=== PATIENT | male | born 1995 | race Hispanic/Latino ===

== ENCOUNTER 2018-08-29 22:41 | Emergency (ER) | payer SELFPAY ==
--- NOTE | 2018-08-30 00:51 | ER ---
Nurse's Notes [facility] Name: Kirk Olsen Age: 22 yrs Sex: Male : 1995 Arrival Date: 08/29/2018 Time: 22:42 Bed 2 Private MD: Diagnosis: Superficial injury of head;Concussion Presentation: 08/29 22:47 Presenting complaint: Friend states: +LOC, approx 30 secs after being hit in the back sr5 of the head with a softball thrown at him. Pt reports "I dont' remember anything". c/o pain to LEFT occiptal area behind LEFT year, +bruising and swelling noted. Pt is AA\\T\\Ox4, equal unlabored resp, skin warm/dry/nc. Transition of care: patient was not received from another setting of care. Mechanism of Injury: resulted from playing sports, baseball. Onset of symptoms was August 29, 2018 at 22:20. 22:47 Method Of Arrival: Ambulatory sr5 22:47 Acuity: ADAM 2 sr5 23:00 Risk Assessment: Do you want to hurt yourself or someone else? Patient reports no ea desire to harm self or others. Initial Sepsis Screen: Does the patient meet any 2 criteria? No. Patient's initial sepsis screen is negative. Does the patient have a suspected source of infection? No. Patient's initial sepsis screen is negative. Triage Assessment: 22:49 General: Appears uncomfortable, Behavior is calm, cooperative. Pain: Complains of pain sr5 in left base of the skull Pain currently is 7 out of 10 on a pain scale. Neuro: Level of Consciousness is awake, alert, obeys commands, Oriented to person, place, time, situation, Associate Team Physician are equal bilaterally Moves all extremities. Gait is steady, Speech is normal, Facial symmetry appears normal. Cardiovascular: No deficits noted. Respiratory: No deficits noted. Historical: - Allergies: 22:49 No Known Allergies; sr5 - Home Meds: 22:49 None [Active]; sr5 - PMHx: 22:49 None; sr5 - PSHx: 22:49 None; sr5 - Immunization history:: Adult Immunizations up to date. - Social history:: Smoking status: Patient/guardian denies using tobacco. - Ebola Screening: : No symptoms or risks identified at this time. - Family history:: not pertinent. - Hospitalizations: : No recent hospitalization is reported. Screenin:12 Abuse screen: Denies threats or abuse. Nutritional screening: No deficits noted. ea Tuberculosis screening: No symptoms or risk factors identified. Fall Risk None identified. Assessment: 23:00 General: Appears uncomfortable, Behavior is calm, cooperative, appropriate for age. ea Pain: Complains of pain in left base of the skull. Pain: Pain currently is 9 out of 10 on a pain scale. Quality of pain is described as aching, Pain began 30 min ago. Is continuous. Neuro: Level of Consciousness is awake, alert, obeys commands, Oriented to person, place, time, situation, Speech is normal, Facial symmetry appears normal. Cardiovascular: Patient's skin is warm and dry. Respiratory: Airway is patent Respiratory effort is even, unlabored, Respiratory pattern is regular, symmetrical, Breath sounds are clear bilaterally. GI: No signs and/or symptoms were reported involving the gastrointestinal system. : No signs and/or symptoms were reported regarding the genitourinary system. Derm: Skin is pink, warm \\T\\ dry. Musculoskeletal: Circulation, motion, and sensation intact. 23:33 Reassessment: Patient and/or family updated on plan of care and expected duration. Pain ea level reassessed. Patient is alert, oriented x 3, equal unlabored respirations, skin warm/dry/pink. Pt taken to CT. 23:49 Reassessment: Patient appears in no apparent distress at this time. Patient is alert, aa1 oriented x 3, equal unlabored respirations, skin warm/dry/pink. Pt back from CT. 08/30 00:10 Reassessment: Patient and/or family updated on plan of care and expected duration. Pain ea level reassessed. Patient is alert, oriented x 3, equal unlabored respirations, skin warm/dry/pink. 00:56 Reassessment: Patient appears in no apparent distress at this time. Patient is alert, aa1 oriented x 3, equal unlabored respirations, skin warm/dry/pink. Discussed d/c \\T\\ f/u instructions with pt; denies questions or concerns at this time Patient states feeling better. Vital Signs: 08/29 22:49 BP 133 / 79; Pulse 103; Resp 18; Temp 98.3; Pulse Ox 99% ; Weight 83.91 kg (R); Pain sr5 05/30; 23:15 BP 122 / 83; Pulse 86; Resp 18; Pulse Ox 98% on R/A; aa1 23:52 BP 121 / 83; Pulse 80; Resp 16; Pulse Ox 98% on R/A; aa1 08/30 00:11 BP 115 / 78; Pulse 81; Resp 17; Pulse Ox 100% ; ea 00:51 BP 121 / 76; Pulse 82; Resp 16; Pulse Ox 98% on R/A; aa1 [place] Coma Score: 08/29 22:47 Eye Response: spontaneous(4). Verbal Response: oriented(5). Motor Response: obeys sr5 commands(6). Total: 15. 23:39 Eye Response: spontaneous(4). Verbal Response: oriented(5). Motor Response: obeys rn commands(6). Total: 15. 08/30 00:49 Eye Response: spontaneous(4). Verbal Response: oriented(5). Motor Response: obeys rn commands(6). Total: 15. Trauma Score (Adult): 08/29 23:15 Eye Response: spontaneous(1); Verbal Response: oriented(1); Motor Response: obeys aa1 commands(2); Systolic BP: > 89 mm Hg(4); Respiratory Rate: 10 to 29 per min(4); [place] Score: 15; Trauma Score: 12 23:52 Eye Response: spontaneous(1); Verbal Response: oriented(1); Motor Response: obeys aa1 commands(2); Systolic BP: > 89 mm Hg(4); Respiratory Rate: 10 to 29 per min(4); [place] Score: 15; Trauma Score: 12 ED Course: 22:42 Patient arrived in ED. am2 22:49 Triage completed. sr5 22:49 Arm band placed on. sr5 22:52 Andre Guillen MD is Attending Physician. rn 23:00 Patient has correct armband on for positive identification. Bed in low position. Call ea light in reach. Side rails up X2. 23:12 Inserted saline lock: 20 gauge in right antecubital area, using aseptic technique. ea 23:[address] via wheelchair. kw1 23:33 Peggy Quezada, RN is Primary Nurse. ea 23:39 CT Head Brain wo Cont In Process Unspecified. EDMS 23:40 CT completed. Patient tolerated procedure well. Patient moved back from CT. kw1 08/30 00:56 No provider procedures requiring assistance completed. IV discontinued, intact, aa1 bleeding controlled, No redness/swelling at site. Pressure dressing applied. Administered Medications: 08/29 23:11 Drug: NS 0.9% 1000 ml Route: IV; Rate: 1000 ml; Site: right antecubital; ea 08/30 00:00 Follow up: IV Status: Completed infusion aa1 08/29 23:12 Drug: Zofran 4 mg Route: IVP; Site: right antecubital; ea 08/30 00:15 Follow up: Response: No adverse reaction; Nausea is decreased aa1 Outcome: 00:50 Discharge ordered by . rn 00:56 Discharged to home ambulatory, with friend. aa1 00:56 Condition: good 00:56 Discharge instructions given to patient, Instructed on discharge instructions, follow up and referral plans. Demonstrated understanding of instructions, follow-up care. 00:58 Patient left the ED. aa1 Signatures: Dispatcher [employer] Shira Reid, RN RN aa1 Andre Guillen MD MD rn Resecker, Sam, RN RN sr5 Bozena William am2 Peggy Quezada RN RN Elise Miller kw1
--- NOTE | 2018-08-30 00:51 | EDPHYS ---
Physician Documentation [facility] Name: Kirk Olsen Age: 22 yrs Sex: Male : 1995 Arrival Date: 08/29/2018 Time: 22:42 Bed 2 Private MD: ED Physician Andre Guillen HPI: 08/29 23:38 This 22 yrs old Male presents to ER via Ambulatory with complaints of Head rn Injury-Adult. 23:38 The patient or guardian reports injury. The complaints affect the. rn 23:39 Context of injury: The problem was sustained at a sports field or court. Onset: The rn symptoms/episode began/occurred just prior to arrival. Severity of symptoms: At their worst the symptoms were moderate, in the emergency department the symptoms have improved. The patient has not experienced similar symptoms in the past. Was playing softball, running to second, hit in back of head with softball, throw from home when stealing, + LOC, helpe din car and brought here for eval. NO medical problems, no vomiting, + nausea. . Historical: - Allergies: 22:49 No Known Allergies; sr5 - Home Meds: 22:49 None [Active]; sr5 - PMHx: 22:49 None; sr5 - PSHx: 22:49 None; sr5 - Immunization history:: Adult Immunizations up to date. - Social history:: Smoking status: Patient/guardian denies using tobacco. - Ebola Screening: : No symptoms or risks identified at this time. - Family history:: not pertinent. - Hospitalizations: : No recent hospitalization is reported. ROS: 23:39 Constitutional: Negative for fever, chills, and weight loss, Eyes: Negative for injury, rn pain, redness, and discharge, Neck: Negative for injury, pain, and swelling, Cardiovascular: Negative for chest pain, palpitations, and edema, Respiratory: Negative for shortness of breath, cough, wheezing, and pleuritic chest pain, Abdomen/GI: + nausea MS/Extremity: Negative for injury and deformity, Skin: Negative for injury, rash, and discoloration, Neuro: + headache, no weakness/paresthesias/focal neurological problems Exam: 23:39 Constitutional: This is a well developed, well nourished patient who is awake, alert, rn holding head Head/Face: mild tenderness and swelling of scalp left occiput, no depression or lacerations Eyes: Pupils equal round and reactive to light, extra-ocular motions intact. Lids and lashes normal. Conjunctiva and sclera are non-icteric and not injected. Cornea within normal limits. Periorbital areas with no swelling, redness, or edema. Neck: Trachea midline, no thyromegaly or masses palpated, and no cervical lymphadenopathy. Supple, full range of motion without nuchal rigidity, or vertebral point tenderness. No Meningismus. Cardiovascular: Regular rate and rhythm with a normal S1 and S2. No gallops, murmurs, or rubs. Normal PMI, no JVD. No pulse deficits. Respiratory: Lungs have equal breath sounds bilaterally, clear to auscultation and percussion. No rales, rhonchi or wheezes noted. No increased work of breathing, no retractions or nasal flaring. Abdomen/GI: Soft, non-tender, with normal bowel sounds. No distension or tympany. No guarding or rebound. No evidence of tenderness throughout. MS/ Extremity: Pulses equal, no cyanosis. Neurovascular intact. Full, normal range of motion. Equal circumference. Neuro: Awake and alert, GCS 15, oriented to person, place, time, and situation. Cranial nerves II-XII grossly intact. Motor strength 5/5 in all extremities. Sensory grossly intact. Cerebellar exam normal. Vital Signs: 22:49 BP 133 / 79; Pulse 103; Resp 18; Temp 98.3; Pulse Ox 99% ; Weight 83.91 kg (R); Pain sr5 7/10; 23:15 BP 122 / 83; Pulse 86; Resp 18; Pulse Ox 98% on R/A; aa1 23:52 BP 121 / 83; Pulse 80; Resp 16; Pulse Ox 98% on R/A; aa1 08/30 00:11 BP 115 / 78; Pulse 81; Resp 17; Pulse Ox 100% ; ea 00:51 BP 121 / 76; Pulse 82; Resp 16; Pulse Ox 98% on R/A; aa1 [place] Coma Score: 08/29 22:47 Eye Response: spontaneous(4). Verbal Response: oriented(5). Motor Response: obeys sr5 commands(6). Total: 15. 23:39 Eye Response: spontaneous(4). Verbal Response: oriented(5). Motor Response: obeys rn commands(6). Total: 15. 08/30 00:49 Eye Response: spontaneous(4). Verbal Response: oriented(5). Motor Response: obeys rn commands(6). Total: 15. Trauma Score (Adult): 08/29 23:15 Eye Response: spontaneous(1); Verbal Response: oriented(1); Motor Response: obeys aa1 commands(2); Systolic BP: > 89 mm Hg(4); Respiratory Rate: 10 to 29 per min(4); [place] Score: 15; Trauma Score: 12 23:52 Eye Response: spontaneous(1); Verbal Response: oriented(1); Motor Response: obeys aa1 commands(2); Systolic BP: > 89 mm Hg(4); Respiratory Rate: 10 to 29 per min(4); [place] Score: 15; Trauma Score: 12 MDM: 22:52 Patient medically screened. rn 08/30 00:49 Differential diagnosis: Contusion of Hematoma on Intracranial bleed- Concussion rn cerebral contusion. Data reviewed: vital signs, nurses notes, radiologic studies, CT scan, and as a result, I will discharge patient. Counseling: I had a detailed discussion with the patient and/or guardian regarding: the historical points, exam findings, and any diagnostic results supporting the discharge/admit diagnosis, radiology results, the need for outpatient follow up, to return to the emergency department if symptoms worsen or persist or if there are any questions or concerns that arise at home. Response to treatment: the patient's symptoms have markedly improved after treatment, the patient's condition has returned to base line, the patient is now symptom free, and as a result, I will discharge patient. Special discussion: Based on the patient's history, exam and DX evaluation, there is no indication for emergent intervention or inpatient TX. It is understood by the patient/guardian that if the SXs persist or worsen they need to return immediately for re-evaluation. I discussed with the patient/guardian in detail that at this point there is no indication for admission to the hospital. It is understood, however, that if the symptoms persist or worsen the patient needs to return immediately for re-evaluation. ED course: Pt now back to baseline, joking with friends in room, using cell phone, smiling, sitting upright. Neg ct head. . 08/29 23:00 Order name: CT Head Brain wo Cont rn 08/29 23:00 Order name: IV Start; Complete Time: 23:12 rn Administered Medications: 08/29 23:11 Drug: NS 0.9% 1000 ml Route: IV; Rate: 1000 ml; Site: right antecubital; ea 08/30 00:00 Follow up: IV Status: Completed infusion aa1 08/29 23:12 Drug: Zofran 4 mg Route: IVP; Site: right antecubital; ea 08/30 00:15 Follow up: Response: No adverse reaction; Nausea is decreased aa1 Disposition: 08/30/18 00:50 Discharged to Home. Impression: Superficial injury of head, Concussion. - Condition is Stable. - Discharge Instructions: Concussion, Adult, Head Injury, Adult, Post-Concussion Syndrome. - Medication Reconciliation Form, Thank You Letter, Antibiotic Education, Prescription Opioid Use form. - Follow up: Private Physician; When: As needed; Reason: Recheck today's complaints, Re-evaluation by your physician. - Problem is new. - Symptoms have improved. Signatures: Dispatcher [employer] EDMS Shira Venegas RN RN aa1 Andre Guillen MD MD rn Resecker, Sam RN RN sr5 Peggy Quezada RN RN ea Corrections: (The following items were deleted from the chart) 00:58 00:50 08/30/2018 00:50 Discharged to Home. Impression: Superficial injury of head; aa1 Concussion. Condition is Stable. Forms are Medication Reconciliation Form, Thank You Letter, Antibiotic Education, Prescription Opioid Use. Follow up: Private Physician; When: As needed; Reason: Recheck today's complaints, Re-evaluation by your physician. Problem is new. Symptoms have improved. rn
[2018-08-30 01:09] VITALS: TEMP 98.3
[2018-08-30 01:14] VITALS: BP 121/76; O2SAT 98
--- NOTE | 2018-08-30 08:28 | RAD REPORT ---
EXAM DESCRIPTION: CT - Head Brain Wo Cont - 08/30/2018 6:54 am CLINICAL HISTORY: Head injury. Hit in head with baseball. Loss of consciousness. COMPARISON: None. TECHNIQUE: Computed axial tomography of the head was obtained. IV contrast was not requested.Loss of the normal lordosis of the cervical spine may be secondary to muscle spasm or positioning All CT scans are performed using dose optimization technique as appropriate and may include automated exposure control or mA/KV adjustment according to patient size. FINDINGS: An intracranial bleed is not seen . The ventricles are normal in caliber. No extra-axial fluid collection is noted. Fluid within the sinuses/ mastoids is not seen. IMPRESSION: No acute intracranial abnormality is seen. If patient's symptoms persist MRI of the bra in would be recommended.
== END 2018-08-30 00:58 | disposition home or self-care (01) ==
LOC: ER 22:41
DX: S06.0X0A Concussion without loss of consciousness, initial encounter (principal); W21.07XA Struck by softball, initial encounter; Y93.89 Activity, other specified; Y92.328 Other athletic field as the place of occurrence of the external cause; Y99.0 Civilian activity done for income or pay
CPT/HCPCS: 70450; 96361; 96374; 99284

== ENCOUNTER 2019-01-30 06:58 | Emergency (ER) | payer SELFPAY ==
[2019-01-30] MEDS ORDERED: ONDANSETRON 4 MG (ODT) TAB ONE (07:25)
[2019-01-30] MEDS ORDERED: DIPHENOX/ATROP SULF 1 TAB PO ONE (07:25)
[2019-01-30] MEDS ORDERED: NA CHLORIDE 0.9% 1,000 ML ONE (07:25)
--- NOTE | 2019-01-30 08:20 | ER ---
Nurse's Notes [facility] Name: Kirk Olsen Age: 23 yrs Sex: Male : 1995 Arrival Date: 01/30/2019 Time: 07:02 Bed 20 Private MD: Diagnosis: Vomiting;Diarrhea, unspecified Presentation: 01/30 07:09 Presenting complaint: N/V/D, body aches, and LUQ pain x 2 days. Transition of care: hb patient was not received from another setting of care. Onset of symptoms was January 29, 2019. Risk Assessment: Do you want to hurt yourself or someone else? Patient reports no desire to harm self or others. Initial Sepsis Screen: Does the patient meet any 2 criteria? No. Patient's initial sepsis screen is negative. Does the patient have a suspected source of infection? No. Patient's initial sepsis screen is negative. Care prior to arrival: None. 07:09 Method Of Arrival: Ambulatory 07:09 Acuity: ADAM 3 hb Historical: - Allergies: 07:10 No Known Allergies; hb - Home Meds: 07:10 None [Active]; hb - PMHx: 07:10 None; hb - PSHx: 07:10 None; hb - Immunization history:: Adult Immunizations up to date. - Social history:: Smoking status: Patient/guardian denies using tobacco. - Ebola Screening: : No symptoms or risks identified at this time. - Family history:: not pertinent. - Hospitalizations: : No recent hospitalization is reported. Screenin:10 Abuse screen: Denies threats or abuse. Denies injuries from another. Nutritional hb screening: No deficits noted. Tuberculosis screening: No symptoms or risk factors identified. Fall Risk None identified. Assessment: 07:23 General: Appears in no apparent distress. Behavior is calm, cooperative, appropriate tw2 for age. Pain: Complains of pain in headache. Neuro: Level of Consciousness is awake, alert, obeys commands, Oriented to person, place, time, situation. Cardiovascular: Heart tones S1 S2 Patient's skin is warm and dry. Respiratory: Airway is patent Respiratory effort is even, unlabored, Respiratory pattern is regular, symmetrical, Breath sounds are clear bilaterally. GI: Abdomen is flat, non-distended, Bowel sounds present X 4 quads. Reports diarrhea, nausea, vomiting. : No signs and/or symptoms were reported regarding the genitourinary system. EENT: No signs and/or symptoms were reported regarding the EENT system. Derm: No signs and/or symptoms reported regarding the dermatologic system. Musculoskeletal: Range of motion: intact in all extremities. 09:04 Reassessment: Patient appears in no apparent distress at this time. No changes from tw2 previously documented assessment. Patient and/or family updated on plan of care and expected duration. Pain level reassessed. Patient is alert, oriented x 3, equal unlabored respirations, skin warm/dry/pink. Vital Signs: 07:09 BP 152 / 79; Pulse 95; Resp 16; Temp 98.8(TE); Pulse Ox 100% on R/A; Pain 6/10; hb ED Course: 07:02 Patient arrived in ED. am2 07:04 Andre Guillen MD is Attending Physician. rn 07:09 Triage completed. hb 07:10 Danii Li RN is Primary Nurse. tw2 07:10 Arm band placed on. hb 07:10 Patient has correct armband on for positive identification. Placed in gown. Bed in low hb position. Call light in reach. Side rails up X 1. 07:20 Inserted saline lock: 20 gauge in right antecubital area, using aseptic technique. tw2 07:23 Flu Sent. tw2 08:39 Awaiting: completion of IV fluids prior to discharge. tw2 09:00 No provider procedures requiring assistance completed. IV discontinued, intact, tw2 bleeding controlled, No redness/swelling at site. Pressure dressing applied. Administered Medications: 07:20 Drug: Zofran 4 mg Route: IVP; Site: right antecubital; tw2 09:00 Follow up: Response: No adverse reaction; Nausea is decreased tw2 07:20 Drug: LoMOTIL 2 tabs Route: PO; tw2 09:00 Follow up: Response: No adverse reaction tw2 07:22 Drug: NS 0.9% 1000 ml Route: IV; Rate: 1000 ml; Site: right antecubital; tw2 09:00 Follow up: Response: No adverse reaction; IV Status: Completed infusion; IV Intake: tw2 1000ml Intake: 09:00 IV: 1000ml; Total: 1000ml. tw2 Outcome: 08:19 Discharge ordered by . rn 09:00 Discharged to home ambulatory, with significant other. tw2 09:00 Condition: stable 09:00 Discharge instructions given to patient, significant other, Instructed on discharge instructions, follow up and referral plans. medication usage, Demonstrated understanding of instructions, follow-up care, medications, Prescriptions given X 1. 09:04 Patient left the ED. Signatures: Andre Guillen MD MD rn Baxter, Heather, RN RN Danii Li RN RN tw2 [facility]
--- NOTE | 2019-01-30 08:20 | EDPHYS ---
Physician Documentation [facility] Name: Kirk Olsen Age: 23 yrs Sex: Male : 1995 Arrival Date: 01/30/2019 Time: 07:02 Bed 20 Private MD: ED Physician Andre Guillen HPI: 01/30 07:08 This 23 yrs old Male presents to ER via Unassigned with complaints of muscle rn aches, vomiting/diarrhea. 07:09 The patient presents to the emergency department with nausea, vomiting, diarrhea. rn Onset: The symptoms/episode began/occurred yesterday. Possible causes: unknown. The symptoms are aggravated by nothing. The symptoms are alleviated by nothing. Severity of symptoms: At their worst the symptoms were mild in the emergency department the symptoms are unchanged. The patient has not experienced similar symptoms in the past. The patient has not recently seen a physician. Reports chills, muscle aches, cough, nausea/vomiting/diarrhea, began yesterday, reports mild LUQ/flank abd pain that is intermittent and cramping. . Historical: - Allergies: 07:10 No Known Allergies; hb - Home Meds: 07:10 None [Active]; hb - PMHx: 07:10 None; hb - PSHx: 07:10 None; hb - Immunization history:: Adult Immunizations up to date. - Social history:: Smoking status: Patient/guardian denies using tobacco. - Ebola Screening: : No symptoms or risks identified at this time. - Family history:: not pertinent. - Hospitalizations: : No recent hospitalization is reported. ROS: 07:09 Constitutional: + chills Eyes: Negative for injury, pain, redness, and discharge, ENT: rn Negative for injury, pain, and discharge, Neck: Negative for injury, pain, and swelling, Cardiovascular: Negative for chest pain, palpitations, and edema, Respiratory: Negative for shortness of breath, cough, wheezing, and pleuritic chest pain, Abdomen/GI: + nausea/vomiting/diarrhea MS/Extremity: Negative for injury and deformity, Skin: Negative for injury, rash, and discoloration, Neuro: + generalized weakness and headache Exam: 07:09 Constitutional: This is a well developed, well nourished patient who is awake, alert, rn and in no acute distress. Walked to room on own without difficulty. Head/Face: Normocephalic, atraumatic. Eyes: Pupils equal round and reactive to light, extra-ocular motions intact. Lids and lashes normal. Conjunctiva and sclera are non-icteric and not injected. Cornea within normal limits. Periorbital areas with no swelling, redness, or edema. ENT: Dry MM Neck: Trachea midline, no thyromegaly or masses palpated, and no cervical lymphadenopathy. Supple, full range of motion without nuchal rigidity, or vertebral point tenderness. No Meningismus. Abdomen/GI: soft, mild LUQ tenderness, no rebound, no peritoneal signs Back: No spinal tenderness. No costovertebral tenderness. Full range of motion. Skin: Warm, dry MS/ Extremity: Pulses equal, no cyanosis. Neurovascular intact. Full, normal range of motion. Equal circumference. Neuro: Awake and alert, GCS 15, oriented to person, place, time, and situation. Cranial nerves II-XII grossly intact. Motor strength 5/5 in all extremities. Sensory grossly intact. Cerebellar exam normal. Normal gait. Vital Signs: 07:09 BP 152 / 79; Pulse 95; Resp 16; Temp 98.8(TE); Pulse Ox 100% on R/A; Pain 6/10; hb MDM: 07:04 Patient medically screened. rn 08:19 Differential diagnosis: viral gastroenteritis, gastroenteritis. Data reviewed: vital rn signs, nurses notes, lab test result(s), and as a result, I will discharge patient. Counseling: I had a detailed discussion with the patient and/or guardian regarding: the historical points, exam findings, and any diagnostic results supporting the discharge/admit diagnosis, lab results, the need for outpatient follow up, to return to the emergency department if symptoms worsen or persist or if there are any questions or concerns that arise at home. Response to treatment: the patient's symptoms have markedly improved after treatment, and as a result, I will discharge patient. Special discussion: Based on the patient's Hx, exam, and Dx evaluation, there is no indication for emergent surgery or inpatient Tx. It is understood by the patient/guardian that if the Sx's persist or worsen they need to return immediately for re-evaluation. I discussed with the patient/guardian in detail that at this point there is no indication for admission to the hospital. It is understood, however, that if the symptoms persist or worsen the patient needs to return immediately for re-evaluation. 01/30 07:08 Order name: Flu; Complete Time: 07:39 rn 01/30 07:08 Order name: IV Start; Complete Time: 07:22 rn Administered Medications: 07:20 Drug: Zofran 4 mg Route: IVP; Site: right antecubital; tw2 09:00 Follow up: Response: No adverse reaction; Nausea is decreased 07:20 Drug: LoMOTIL 2 tabs Route: PO; 09:00 Follow up: Response: No adverse reaction :22 Drug: NS 0.9% 1000 ml Route: IV; Rate: 1000 ml; Site: right antecubital; tw 09:00 Follow up: Response: No adverse reaction; IV Status: Completed infusion; IV Intake: tw2 1000ml Disposition: 01/30/19 08:19 Discharged to Home. Impression: Vomiting, Diarrhea, unspecified. - Condition is Stable. - Discharge Instructions: Diarrhea, Adult, Nausea and Vomiting, Adult. - Prescriptions for Zofran ODT 4 mg Oral tablet,disintegrating - place 1 tablet by TRANSLINGUAL route every 8 hours As needed; 20 tablet. - Medication Reconciliation Form, Thank You Letter, Antibiotic Education, Prescription Opioid Use, Work release form form. - Follow up: Private Physician; When: As needed; Reason: Recheck today's complaints, Re-evaluation by your physician. - Problem is new. - Symptoms have improved. Signatures: Dispatcher [employer] EDMS Andre Guillen MD MD rn Baxter, Heather, RN RN hb Wise, Tara, RN RN tw2 Corrections: (The following items were deleted from the chart) 09:04 08:19 01/30/2019 08:19 Discharged to Home. Impression: Vomiting; Diarrhea, unspecified. hb Condition is Stable. Discharge Instructions: Diarrhea, Adult, Nausea and Vomiting, Adult. Prescriptions for Zofran ODT 4 mg Oral tablet,disintegrating - place 1 tablet by TRANSLINGUAL route every 8 hours As needed; 20 tablet. and Forms are Work release form, Medication Reconciliation Form, Thank You Letter, Antibiotic Education, Prescription Opioid Use. Follow up: Private Physician; When: As needed; Reason: Recheck today's complaints, Re-evaluation by your physician. Problem is new. Symptoms have improved. rn
[2019-01-30 09:19] VITALS: BP 152/79; TEMP 98.8; O2SAT 100
== END 2019-01-30 09:04 | disposition home or self-care (01) ==
LOC: ER 06:58
DX: R11.2 Nausea with vomiting, unspecified (principal); R19.7 Diarrhea, unspecified
CPT/HCPCS: 87804; 96361; 96374; 99284; J7030

== ENCOUNTER 2019-05-03 10:10 | Emergency (ER) | payer SELFPAY ==
--- OUTSIDE RECORDS SUMMARY | 2019-05-03 10:12 | XMS REPORT ---
:1995 [facility] Address [address] [place] [address] Dr. Pradhan [address] [place] [address] Care Team Providers Name Role Phone Unavailable Unavailable Unavailable Problems This patient has no known problems. Allergies, Adverse Reactions, Alerts This patient has no known allergies or adverse reactions. Medications This patient has no known medications.
[2019-05-03] MEDS ORDERED: ONDANSETRON 4 MG (ODT) TAB ONE (10:45)
--- NOTE | 2019-05-03 11:36 | ER ---
Nurse's Notes [facility] Name: Kirk Olsen Age: 23 yrs Sex: Male : 1995 Arrival Date: 05/03/2019 Time: 10:13 Bed 6 Private MD: Diagnosis: Streptococcal pharyngitis;Nausea and vomiting Presentation: 05/03 10:25 Presenting complaint: Patient states: sore throat x 1 week. Vomiting that began ss yesterday. Transition of care: patient was not received from another setting of care. Onset of symptoms was April 26, 2019. Risk Assessment: Do you want to hurt yourself or someone else? Patient reports no desire to harm self or others. Initial Sepsis Screen: Does the patient meet any 2 criteria? No. Patient's initial sepsis screen is negative. Does the patient have a suspected source of infection? No. Patient's initial sepsis screen is negative. Care prior to arrival: None. 10:25 Method Of Arrival: Ambulatory ss 10:25 Acuity: ADAM 4 ss Historical: - Allergies: 10:27 No Known Allergies; ss - Home Meds: 10:27 None [Active]; ss - PMHx: 10:27 None; ss - PSHx: 10:27 nasal repair; ss - Immunization history:: Adult Immunizations unknown. - Social history:: Smoking status: Patient uses tobacco products, denies chronic smoking, but will smoke occasionally. - Ebola Screening: : Patient denies exposure to infectious person Patient denies travel to an Ebola-affected area in the 21 days before illness onset. Screenin:32 Abuse screen: Denies threats or abuse. Denies injuries from another. Nutritional ss screening: No deficits noted. Tuberculosis screening: Never had TB. Fall Risk None identified. Assessment: 10:32 General: Appears in no apparent distress. comfortable, Behavior is calm, cooperative, ss Denies fever, feeling ill, fatigue, chills. Pain: Complains of pain in throat Pain currently is 6 out of 10 on a pain scale. Quality of pain is described as aching, tender, Pain began x 1 week Is continuous. Neuro: Level of Consciousness is awake, alert, obeys commands, Oriented to person, place, time, situation, Speech is normal, Facial symmetry appears normal, Pupils are PERRLA. Cardiovascular: Pulses are palpable in right radial artery and left radial artery. Respiratory: Airway is patent Respiratory effort is even, unlabored, Respiratory pattern is regular, symmetrical, Breath sounds are clear bilaterally. GI: Reports nausea, vomiting, that began last night. EENT: Nares are clear Oral mucosa is moist. Throat is reddened bilaterally. Derm: Skin is intact, is healthy with good turgor, Skin is dry, Skin is pink, warm \T\ dry. normal. Musculoskeletal: Circulation, motion, and sensation intact. Range of motion: intact in all extremities, Swelling absent. Vital Signs: 10:27 BP 126 / 88; Pulse 64; Resp 14; Temp 97.9; Pulse Ox 99% on R/A; Weight 86.18 kg; Height ss 5 ft. 5 in. (165.10 cm); Pain 6/10; 10:27 Body Mass Index 31.62 (86.18 kg, 165.10 cm) ED Course: 10:13 Patient arrived in ED. mr 10:20 Randolph Renee PA is PHCP. cp 10:20 Randolph Posada MD is Attending Physician. cp 10:26 Triage completed. ss 10:27 Arm band placed on right wrist. ss 10:28 Kaye Shannon RN is Primary Nurse. ss 10:32 Patient has correct armband on for positive identification. Bed in low position. Call ss light in reach. 10:34 Strep Sent. ss 12:23 No provider procedures requiring assistance completed. Patient did not have IV access ss during this emergency room visit. Administered Medications: 10:32 Drug: Zofran 4 mg Route: PO; ss 12:20 Follow up: Response: No adverse reaction; Nausea is decreased ss Outcome: 11:35 Discharge ordered by . cp 12:23 Discharged to home ambulatory. ss 12:23 Condition: good 12:23 Discharge instructions given to patient, family, Instructed on discharge instructions, follow up and referral plans. medication usage, Demonstrated understanding of instructions, follow-up care, medications, Prescriptions given X 2. 12:24 Patient left the ED. ss Signatures: Kalpesh Danna mr Kaye Shannon, RN RN Randolph Renee PA PA cp
--- NOTE | 2019-05-03 11:36 | EDPHYS ---
Physician Documentation [facility] Name: Kirk Olsen Age: 23 yrs Sex: Male : 1995 Arrival Date: 05/03/2019 Time: 10:13 Bed 6 Private MD: EDIE Physician Randolph Posada HPI: 05/03 10:30 This 23 yrs old Male presents to ER via Ambulatory with complaints of Sore cp Throat, Vomiting. 10:30 The patient presents with sore throat. Onset: The symptoms/episode began/occurred 1 cp week(s) ago. Associated signs and symptoms: Pertinent positives: cough, diarrhea, vomiting, Pertinent negatives dysphagia, fever. Historical: - Allergies: 10: No Known Allergies; ss - Home Meds: 10:27 None [Active]; ss - PMHx: 10: None; ss - PSHx: 10:27 nasal repair; ss - Immunization history:: Adult Immunizations unknown. - Social history:: Smoking status: Patient uses tobacco products, denies chronic smoking, but will smoke occasionally. - Ebola Screening: : Patient denies exposure to infectious person Patient denies travel to an Ebola-affected area in the 21 days before illness onset. ROS: 10:35 Constitutional: Negative for body aches, chills, fever, poor PO intake. cp 10:35 Eyes: Negative for injury, pain, redness, and discharge. cp Exam: 10:50 Constitutional: The patient appears in no acute distress, alert, awake, non-toxic, well cp developed, well nourished. 10:50 Head/Face: Normocephalic, atraumatic. cp 10:50 Eyes: Periorbital structures: appear normal, Conjunctiva: normal, no exudate, no injection, Lids and lashes: appear normal, bilaterally. 10:50 ENT: External ear(s): are unremarkable, Ear canal(s): are normal, clear, TM's: bulging, is not appreciated, bilaterally, dullness, bilaterally, erythema, is not appreciated, bilaterally, Nose: is normal, Mouth: Lips: moist, Oral mucosa: moist, Posterior pharynx: Airway: no evidence of obstruction, patent, Tonsils: with erythema, no exudate, Uvula: midline, non-edematous, no erythema, erythema, that is moderate, exudate, is not appreciated. 10:50 Neck: ROM/movement: is normal, is supple, without pain, no range of motions limitations, no meningismus, no nuchal rigidity. 10:50 Chest/axilla: Inspection: normal. 10:50 Cardiovascular: Rate: normal. 10:50 Respiratory: the patient does not display signs of respiratory distress, Respirations: normal, no use of accessory muscles, no retractions, no splinting, no tachypnea, labored breathing, is not present, Breath sounds: are clear throughout, no decreased breath sounds, no stridor, no wheezing. 10:50 Abdomen/GI: Exam negative for discomfort, distension, guarding, Inspection: abdomen appears normal. Vital Signs: 10:27 BP 126 / 88; Pulse 64; Resp 14; Temp 97.9; Pulse Ox 99% on R/A; Weight 86.18 kg; Height ss 5 ft. 5 in. (165.10 cm); Pain 6/10; 10:27 Body Mass Index 31.62 (86.18 kg, 165.10 cm) ss MDM: 10:20 Patient medically screened. cp 11:34 Data reviewed: vital signs, nurses notes, lab test result(s), and as a result, I will cp discharge patient. 11:34 Counseling: I had a detailed discussion with the patient and/or guardian regarding: the cp historical points, exam findings, and any diagnostic results supporting the discharge/admit diagnosis, lab results, to return to the emergency department if symptoms worsen or persist or if there are any questions or concerns that arise at home. 05/03 10:25 Order name: Strep; Complete Time: 11:12 cp 05/03 11:12 Interpretation: Reviewed. 05/03 11:12 Order name: PO challenge; Complete Time: 12:20 cp Administered Medications: 10:32 Drug: Zofran 4 mg Route: PO; ss 12:20 Follow up: Response: No adverse reaction; Nausea is decreased ss Disposition: 05/03/19 11:35 Discharged to Home. Impression: Streptococcal pharyngitis, Nausea and vomiting. - Condition is Stable. - Discharge Instructions: Nausea and Vomiting, Adult, Strep Throat, Form - Excuse from Work, School, or Physical Activity. - Prescriptions for Amoxicillin 875 mg Oral Tablet - take 1 tablet by ORAL route every 12 hours for 10 days; 20 tablet. Zofran 4 mg Oral Tablet - take 1 tablet by ORAL route every 12 hours As needed; 10 tablet. - Work release form, Medication Reconciliation Form, Thank You Letter, Antibiotic Education, Prescription Opioid Use form. - Follow up: Private Physician; When: 48 Hours; Reason: Worsening of condition. - Problem is new. - Symptoms have improved. Addendum: 05/07/2019 08:51 Co-signature as Attending Physician, Randolph Posada MD I agree with the assessment and c amaya plan of care. Signatures: Dispatcher [employer] EDSC Randolph Posada MD MD cha Smirch, Shelby RN RN ss Randolph Renee, PA PA cp Corrections: (The following items were deleted from the chart) 05/03 12:24 11:35 05/03/2019 11:35 Discharged to Home. Impression: Streptococcal pharyngitis; ss Nausea and vomiting. Condition is Stable. Forms are Medication Reconciliation Form, Thank You Letter, Antibiotic Education, Prescription Opioid Use. Follow up: Private Physician; When: 48 Hours; Reason: Worsening of condition. Problem is new. Symptoms have improved. cp
[2019-05-03 12:41] VITALS: BP 126/88; TEMP 97.9; O2SAT 99
== END 2019-05-03 12:24 | disposition home or self-care (01) ==
LOC: ER 10:10
DX: J02.0 Streptococcal pharyngitis (principal); R11.2 Nausea with vomiting, unspecified
CPT/HCPCS: 87081; 99283

== ENCOUNTER 2019-07-31 10:48 | Emergency (ER) | payer SELFPAY ==
--- OUTSIDE RECORDS SUMMARY | 2019-07-31 10:52 | XMS REPORT ---
:1995 [facility] Address [address] [place] [address] [address]. Pr[address] [place] [address] Care Team Providers Name Role Phone Unavailable Unavailable Unavailable Problems This patient has no known problems. Allergies, Adverse Reactions, Alerts This patient has no known allergies or adverse reactions. Medications This patient has no known medications.
[2019-07-31] MEDS ORDERED: ONDANSETRON 4 MG (ODT) TAB ONE (11:30)
[2019-07-31 13:11] VITALS: O2SAT 100
--- NOTE | 2019-07-31 13:13 | ER ---
Nurse's Notes [facility] Name: Kirk Olsen Age: 23 yrs Sex: Male : 1995 Arrival Date: 07/31/2019 Time: 10:51 Bed 16 Private MD: Diagnosis: Vomiting;Diarrhea, unspecified Presentation: 07/31 11:05 Presenting complaint: Patient states: vomited 3 times since yesterday, last vomited iw this morning at 0600 while getting ready for work, took some Pepto Bismol and went to sleep. Transition of care: patient was not received from another setting of care. Onset of symptoms was July 30, 2019. Risk Assessment: Do you want to hurt yourself or someone else? Patient reports no desire to harm self or others. Initial Sepsis Screen: Does the patient meet any 2 criteria? No. Patient's initial sepsis screen is negative. Does the patient have a suspected source of infection? No. Patient's initial sepsis screen is negative. Care prior to arrival: None. 11:05 Method Of Arrival: Ambulatory iw 11:05 Acuity: ADAM 3 iw Historical: - Allergies: 11:07 No Known Allergies; iw - Home Meds: 11:07 None [Active]; iw - PMHx: 11:07 None; iw - PSHx: 11:07 None; iw - Immunization history:: Adult Immunizations not up to date. - Social history:: Smoking status: Patient uses tobacco products, denies chronic smoking, but will smoke occasionally. - Ebola Screening: : Patient negative for fever greater than or equal to 101.5 degrees Fahrenheit, and additional compatible Ebola Virus Disease symptoms Patient denies exposure to infectious person Patient denies travel to an Ebola-affected area in the 21 days before illness onset No symptoms or risks identified at this time. Screenin:39 Abuse screen: Denies threats or abuse. Denies injuries from another. Nutritional jl7 screening: No deficits noted. Tuberculosis screening: No symptoms or risk factors identified. Fall Risk None identified. Assessment: 11:30 General: Appears in no apparent distress. comfortable, Behavior is calm, cooperative, jl7 appropriate for age. Pain: Denies pain. Neuro: Level of Consciousness is awake, alert, obeys commands, Oriented to person, place, time, situation. Cardiovascular: Patient's skin is warm and dry. Respiratory: Airway is patent Respiratory effort is even, unlabored, Respiratory pattern is regular, symmetrical. GI: Abdomen is round non-distended, Reports nausea, vomiting, Patient currently denies constipation, diarrhea. : No signs and/or symptoms were reported regarding the genitourinary system. Derm: Skin is pink, warm \T\ dry. 12:30 Reassessment: Patient appears in no apparent distress at this time. Patient and/or jl7 family updated on plan of care and expected duration. Pain level reassessed. Patient is alert, oriented x 3, equal unlabored respirations, skin warm/dry/pink. Patient states feeling better. Vital Signs: 11:07 BP 137 / 77; Pulse 74; Resp 16 S; Temp 98.2; Pulse Ox 100% on R/A; Weight 86.18 kg; iw Height 5 ft. 5 in. (165.10 cm); Pain 0/10; 11:39 BP 129 / 88; Pulse 71; Resp 16 S; Pulse Ox 98% on R/A; jl7 12:32 BP 117 / 82; Pulse 61; Resp 17; Temp 98.0(O); Pulse Ox 100% ; mh5 11:07 Body Mass Index 31.62 (86.18 kg, 165.10 cm) ED Course: 10:51 Patient arrived in ED. mr 10:55 Carlos Aguayo PA is PHCP. jmm 10:55 Andre Guillen MD is Attending Physician. [facility] 11:07 Triage completed. iw 11:08 Arm band placed on. iw 11:27 Hanane Ford, RN is Primary Nurse. jl7 11:38 Patient has correct armband on for positive identification. Bed in low position. Call [facility] light in reach. Pulse ox on. NIBP on. 11:38 Urine collected: clean catch specimen, clear. 5 11:42 Urine Dipstick--Ancillary (enter results) Sent. [facility] 13:03 No provider procedures requiring assistance completed. Patient did not have IV access [facility] during this emergency room visit. Administered Medications: 11:38 Drug: Zofran 4 mg Route: PO; jl7 Outcome: 12:43 Discharge ordered by . [facility] 13:03 Discharged to home ambulatory. [facility] 13:03 Condition: stable 13:03 Discharge instructions given to patient, Instructed on discharge instructions, follow up and referral plans. medication usage, Demonstrated understanding of instructions, follow-up care, medications, Prescriptions given X 1. 13:04 Patient left the ED. jl7 Signatures: Carlos Aguayo PA PA jmm Rivera, Mary mr Williams, Irene, RN Griselda Peña [facility] Hanane Ford RN RN jl7
--- NOTE | 2019-07-31 13:13 | EDPHYS ---
Physician Documentation [facility] Name: Kirk Olsen Age: 23 yrs Sex: Male : 1995 Arrival Date: 07/31/2019 Time: 10:51 Bed 16 Private MD: ED Physician Andre Guillen HPI: 07/31 11:10 This 23 yrs old Male presents to ER via Ambulatory with complaints of Vomiting.jmm 11:10 The patient presents to the emergency department with nausea, vomiting, diarrhea, jmm abdominal pain. Onset: The symptoms/episode began/occurred acutely, 1 day(s) ago. Possible causes: sick contacts, by a friend. The symptoms are aggravated by nothing. The symptoms are alleviated by nothing. Patient developed vomiting and diarrhea yesterday. Girlfriend had similar symptoms. . Historical: - Allergies: 11:07 No Known Allergies; iw - Home Meds: :07 None [Active]; iw - PMHx: 11:07 None; iw - PSHx: 11:07 None; iw - Immunization history:: Adult Immunizations not up to date. - Social history:: Smoking status: Patient uses tobacco products, denies chronic smoking, but will smoke occasionally. - Ebola Screening: : Patient negative for fever greater than or equal to 101.5 degrees Fahrenheit, and additional compatible Ebola Virus Disease symptoms Patient denies exposure to infectious person Patient denies travel to an Ebola-affected area in the 21 days before illness onset No symptoms or risks identified at this time. ROS: 11:10 Constitutional: Negative for fever, chills, and weight loss, Cardiovascular: Negative jmm for chest pain, palpitations, and edema, Respiratory: Negative for shortness of breath, cough, wheezing, and pleuritic chest pain. 11:10 Back: Negative for injury and pain, MS/Extremity: Negative for injury and deformity, Skin: Negative for injury, rash, and discoloration, Neuro: Negative for headache, weakness, numbness, tingling, and seizure. 11:10 Abdomen/GI: Positive for abdominal pain, nausea and vomiting, diarrhea. 11:10 All other systems are negative. Exam: 11:10 Constitutional: This is a well developed, well nourished patient who is awake, alert, jmm and in no acute distress. Head/Face: atraumatic. Eyes: EOMI, no conjunctival erythema appreciated ENT: Moist Mucus Membranes Neck: Trachea midline, Supple Chest/axilla: Normal chest wall appearance and motion. Cardiovascular: Regular rate and rhythm. No edema appreciated Respiratory: Normal respirations, no respiratory distress appreciated 11:10 Back: Normal ROM Skin: General appearance color normal MS/ Extremity: Moves all extremities, no obvious deformities appreciated, no edema noted to the lower extremities Neuro: Awake and alert, normal gait Psych: Behavior is normal, Mood is normal, Patient is cooperative and pleasant 11:10 Abdomen/GI: Inspection: abdomen appears normal, Bowel sounds: normal, Palpation: abdomen is soft and non-tender, in all quadrants. Vital Signs: 11:07 BP 137 / 77; Pulse 74; Resp 16 S; Temp 98.2; Pulse Ox 100% on R/A; Weight 86.18 kg; iw Height 5 ft. 5 in. (165.10 cm); Pain 0/10; 11:39 BP 129 / 88; Pulse 71; Resp 16 S; Pulse Ox 98% on R/A; jl7 12:32 BP 117 / 82; Pulse 61; Resp 17; Temp 98.0(O); Pulse Ox 100% ; mh5 11:07 Body Mass Index 31.62 (86.18 kg, 165.10 cm) iw MDM: 11:10 Patient medically screened. [facility] 11:10 Data reviewed: vital signs, nurses notes. Counseling: I had a detailed discussion with nilam the patient and/or guardian regarding: the historical points, exam findings, and any diagnostic results supporting the discharge/admit diagnosis, lab results, the need for outpatient follow up, to return to the emergency department if symptoms worsen or persist or if there are any questions or concerns that arise at home. ED course: Patient is able to tolerate PO in the ED. No abdominal pain on palpation. Symptoms appear most consistent with gastroenteritis. Patient given early appendicitis return precautions. Patient understood and agrees with the plan of care. . 07/31 11:40 Order name: Urine Dipstick--Ancillary (enter results) bd 07/31 11:10 Order name: Urine Dipstick-Ancillary (obtain specimen); Complete Time: 11:37 nilam 07/31 12:05 Order name: PO challenge nilam Administered Medications: 11:38 Drug: Zofran 4 mg Route: PO; jl7 Disposition: 14:45 Co-signature as Attending Physician, Andre Guillen MD. rn Disposition: 07/31/19 12:43 Discharged to Home. Impression: Vomiting, Diarrhea, unspecified. - Condition is Stable. - Discharge Instructions: Diarrhea, Adult, Nausea and Vomiting, Adult. - Prescriptions for Zofran ODT 4 mg Oral tablet,disintegrating - place 1 tablet by TRANSLINGUAL route every 4-6 hours; 20 tablet. - Medication Reconciliation Form, Thank You Letter, Antibiotic Education, Prescription Opioid Use, Work release form form. - Follow up: Private Physician; When: 2 - 3 days; Reason: Recheck today's complaints, Continuance of care, Re-evaluation by your physician. Signatures: Dispatcher [employer] EDMS Carlos Aguayo PA PA jmm Williams, Irene, Andre Crouch RN, MD MD rn Leal, Jahala, RN RN jl7 Corrections: (The following items were deleted from the chart) 13:04 12:43 07/31/2019 12:43 Discharged to Home. Impression: Vomiting; Diarrhea, unspecified. jl7 Condition is Stable. Forms are Medication Reconciliation Form, Thank You Letter, Antibiotic Education, Prescription Opioid Use. Follow up: Private Physician; When: 2 - 3 days; Reason: Recheck today's complaints, Continuance of care, Re-evaluation by your physician. nilam
[2019-07-31 13:17] VITALS: BP 117/82; TEMP 98
[2019-07-31 13:50] LABS: Urine Blood NEGATIVE (NEG); Urine Glucose NEGATIVE (NEG); Urine Protein NEGATIVE (NEG); Urine Specific Gravity >1.030 (1.005-1.030)
== END 2019-07-31 13:04 | disposition home or self-care (01) ==
LOC: ER 10:48
DX: R11.2 Nausea with vomiting, unspecified (principal); R19.7 Diarrhea, unspecified; Z72.0 Tobacco use
CPT/HCPCS: 81003; 99284

== ENCOUNTER 2019-08-27 11:36 | Emergency (ER) | payer SELFPAY ==
--- NOTE | 2019-08-27 13:33 | ER ---
Nurse's Notes [facility] Name: Kirk Olsen Age: 23 yrs Sex: Male : 1995 Arrival Date: 08/27/2019 Time: 11:39 Bed Treatment Private MD: Diagnosis: Acute tonsillitis;Acute upper respiratory infection, unspecified Presentation: 08/27 11:47 Presenting complaint: Patient states: sore throat, sinus congestion/pain, productive sv cough green phlegm, abd pain after vomiting started 2 days ago. Transition of care: patient was not received from another setting of care. Onset of symptoms was August 25, 2019. Risk Assessment: Do you want to hurt yourself or someone else? Patient reports no desire to harm self or others. Care prior to arrival: None. 11:47 Method Of Arrival: Ambulatory sv 11:47 Acuity: ADAM 3 sv 13:00 Initial Sepsis Screen: Does the patient meet any 2 criteria? No. Patient's initial iw sepsis screen is negative. Does the patient have a suspected source of infection? No. Patient's initial sepsis screen is negative. Triage Assessment: 11:47 General: Appears in no apparent distress. uncomfortable, Behavior is calm, cooperative, sv appropriate for age. Pain: Complains of pain in right cheek, left cheek and abdomen and throat. EENT: Throat has enlarged tonsils on right. Respiratory: Airway is patent Respiratory effort is even, unlabored. Historical: - Allergies: 11:48 No Known Allergies; sv - PMHx: 11:48 None; sv - PSHx: 11:48 None; sv - Immunization history:: Adult Immunizations unknown. - Social history:: Smoking status: Patient uses tobacco products, denies chronic smoking, but will smoke occasionally. - Ebola Screening: : No symptoms or risks identified at this time. Screenin:45 Abuse screen: Denies threats or abuse. Denies injuries from another. Nutritional iw screening: No deficits noted. Tuberculosis screening: No symptoms or risk factors identified. Fall Risk None identified. Assessment: 13:00 General: Appears in no apparent distress. comfortable, Behavior is calm, cooperative. iw Neuro: Level of Consciousness is awake, alert, obeys commands, Oriented to person, place, time, situation, Moves all extremities. Full function. Cardiovascular: Patient's skin is warm and dry. Respiratory: Airway is patent Respiratory effort is even, unlabored, Breath sounds are clear bilaterally. Derm: Skin is intact, is healthy with good turgor. Musculoskeletal: Range of motion: intact in all extremities. Vital Signs: 11:48 BP 127 / 97; Pulse 87; Resp 16; Temp 97.8; Pulse Ox 99% ; Weight 93.44 kg; Height 5 ft. sv 5 in. (165.10 cm); Pain 5/10; 11:48 Body Mass Index 34.28 (93.44 kg, 165.10 cm) sv ED Course: 11:39 Patient arrived in ED. mr 11:47 Triage completed. sv 11:48 Arm band placed on Patient placed in waiting room, Patient notified of wait time. sv 13:00 Patient has correct armband on for positive identification. iw 13:04 Patient moved to radiology via wheelchair. jb2 13:04 Chest Pa And Lat (2 Views) XRAY In Process Unspecified. EDMS 13:13 Nataliia Chaudhari RN is Primary Nurse. iw 13:16 Randolph Posada MD is Attending Physician. [facility] 13:46 No provider procedures requiring assistance completed. Patient did not have IV access iw during this emergency room visit. Administered Medications: No medications were administered Outcome: 13:32 Discharge ordered by . ruth 13:46 Discharged to home ambulatory. iw 13:46 Condition: good 13:46 Discharge instructions given to patient, Instructed on discharge instructions, follow up and referral plans. medication usage, Demonstrated understanding of instructions, follow-up care, medications, Prescriptions given X 3. 13:47 Patient left the ED. iw Signatures: Dispatcher [employer] Do Mckeon RN RN sv Anderson, Corey, MD MD cha Rivera, Mary Aleksander Scott jb2 Nataliia Chaudhari RN RN iw Corrections: (The following items were deleted from the chart) 15:48 13:46 Discharge instructions given to patient, Instructed on discharge instructions, iw follow up and referral plans. medication usage, Demonstrated understanding of instructions, follow-up care, medications, Prescriptions given X iw
--- NOTE | 2019-08-27 13:34 | EDPHYS ---
Physician Documentation [facility] Name: Kirk Olsen Age: 23 yrs Sex: Male : 1995 Arrival Date: 08/27/2019 Time: 11:39 Bed Treatment Private MD: ED Physician Randolph Posada HPI: 08/27 13:29 This 23 yrs old Male presents to ER via Ambulatory with complaints of Sore ruth Throat, Headache, Abdominal Pain. 13:29 The patient presents with sore throat. The patient describes throat pain as burning, ruth constant. Onset: The symptoms/episode began/occurred yesterday. Severity of symptoms: At their worst the symptoms were mild, in the emergency department the symptoms are unchanged. Modifying factors: The symptoms are alleviated by nothing, the symptoms are aggravated by fluids, swallowing, Patient's oral intake status: good. Associated signs and symptoms: The patient has no apparent associated signs or symptoms. Historical: - Allergies: 11:48 No Known Allergies; sv - PMHx: 11:48 None; sv - PSHx: 11:48 None; sv - Immunization history:: Adult Immunizations unknown. - Social history:: Smoking status: Patient uses tobacco products, denies chronic smoking, but will smoke occasionally. - Ebola Screening: : No symptoms or risks identified at this time. ROS: 13:30 Constitutional: Negative for fever, chills, and weight loss, Eyes: Negative for injury, ruth pain, redness, and discharge, Neck: Negative for injury, pain, and swelling, Cardiovascular: Negative for chest pain, palpitations, and edema, Respiratory: Negative for shortness of breath, cough, wheezing, and pleuritic chest pain, Abdomen/GI: Negative for abdominal pain, nausea, vomiting, diarrhea, and constipation, Back: Negative for injury and pain, : Negative for injury, bleeding, discharge, and swelling, MS/Extremity: Negative for injury and deformity, Skin: Negative for injury, rash, and discoloration, Neuro: Negative for headache, weakness, numbness, tingling, and seizure, Psych: Negative for depression, anxiety, suicide ideation, homicidal ideation, and hallucinations, Allergy/Immunology: Negative for hives, rash, and allergies, Endocrine: Negative for neck swelling, polydipsia, polyuria, polyphagia, and marked weight changes, Hematologic/Lymphatic: Negative for swollen nodes, abnormal bleeding, and unusual bruising. 13:30 ENT: Positive for sore throat. 13:30 Neck: Positive for Exam: 13:30 Constitutional: This is a well developed, well nourished patient who is awake, alert, ruth and in no acute distress. Head/Face: Normocephalic, atraumatic. Eyes: Pupils equal round and reactive to light, extra-ocular motions intact. Lids and lashes normal. Conjunctiva and sclera are non-icteric and not injected. Cornea within normal limits. Periorbital areas with no swelling, redness, or edema. Neck: Trachea midline, no thyromegaly or masses palpated, and no cervical lymphadenopathy. Supple, full range of motion without nuchal rigidity, or vertebral point tenderness. No Meningismus. Chest/axilla: Normal chest wall appearance and motion. Nontender with no deformity. No lesions are appreciated. Cardiovascular: Regular rate and rhythm with a normal S1 and S2. No gallops, murmurs, or rubs. Normal PMI, no JVD. No pulse deficits. Respiratory: Lungs have equal breath sounds bilaterally, clear to auscultation and percussion. No rales, rhonchi or wheezes noted. No increased work of breathing, no retractions or nasal flaring. Abdomen/GI: Soft, non-tender, with normal bowel sounds. No distension or tympany. No guarding or rebound. No evidence of tenderness throughout. Back: No spinal tenderness. No costovertebral tenderness. Full range of motion. Male : Normal genitalia with no discharge or lesions. Skin: Warm, dry with normal turgor. Normal color with no rashes, no lesions, and no evidence of cellulitis. Neuro: Awake and alert, GCS 15, oriented to person, place, time, and situation. Cranial nerves II-XII grossly intact. Motor strength 5/5 in all extremities. Sensory grossly intact. Cerebellar exam normal. Normal gait. Psych: Awake, alert, with orientation to person, place and time. Behavior, mood, and affect are within normal limits. 13:30 ENT: Posterior pharynx: Tonsils: bilaterally enlarged, with erythema, no exudate, no ulcerations, Uvula: midline, non-edematous, erythema, swelling, that is mild, erythema, that is mild, exudate, is not appreciated, peritonsillar mass, is not appreciated, pooling of secretions, is not appreciated. Vital Signs: 11:48 BP 127 / 97; Pulse 87; Resp 16; Temp 97.8; Pulse Ox 99% ; Weight 93.44 kg; Height 5 ft. sv 5 in. (165.10 cm); Pain 5/10; 11:48 Body Mass Index 34.28 (93.44 kg, 165.10 cm) sv MDM: 13:16 [facility] 13:31 Data reviewed: vital signs, nurses notes. ruth 08/27 11:48 Order name: Strep 08/27 11:48 Order name: Flu sv 08/27 11:48 Order name: Chest Pa And Lat (2 Views) XRAY sv 08/27 12:17 Order name: Throat Culture EDMS Administered Medications: No medications were administered Disposition: 08/27/19 13:32 Discharged to Home. Impression: Acute tonsillitis, Acute upper respiratory infection, unspecified. - Condition is Stable. - Discharge Instructions: Tonsillitis, Upper Respiratory Infection, Adult, Tonsillitis, [id number], Upper Respiratory Infection, Adult, [id number], Cough, Adult, [id number], Cough, Adult. - Prescriptions for Amoxicillin 500 mg Oral Capsule - take 1 capsule by ORAL route every 8 hours for 10 days; 30 tablet. Flora- D 12 Hour 60-120 mg Oral Tablet Sustained Release 12 hr - take 1 tablet by ORAL route every 12 hours As needed; 20 tablet. Medrol (Juan M) 4 mg Oral Tablets, Dose Pack - take 1 tablet by ORAL route as directed - follow package instructions; 1 packet. - Medication Reconciliation Form, Thank You Letter, Antibiotic Education, Prescription Opioid Use, Work release form form. - Follow up: Private Physician; When: 2 - 3 days; Reason: Recheck today's complaints, Continuance of care, Re-evaluation by your physician. - Problem is new. - Symptoms have improved. Signatures: Dispatcher [employer] Do Mckeon RN RN sv Anderson, Corey, MD MD cha Williams, Irene, RN RN iw Corrections: (The following items were deleted from the chart) 13:47 13:32 08/27/2019 13:32 Discharged to Home. Impression: Acute tonsillitis; Acute upper iw respiratory infection, unspecified. Condition is Stable. Forms are Medication Reconciliation Form, Thank You Letter, Antibiotic Education, Prescription Opioid Use. Follow up: Private Physician; When: 2 - 3 days; Reason: Recheck today's complaints, Continuance of care, Re-evaluation by your physician. Problem is new. Symptoms have improved. ruth
--- NOTE | 2019-08-27 13:38 | RAD REPORT ---
EXAM DESCRIPTION: RAD - Chest Pa And Lat (2 Views) - 08/27/2019 1:08 pm CLINICAL HISTORY: CONGESTION COMPARISON: November 2016 TECHNIQUE: PA and lateral views of the chest were obtained. FINDINGS: The lungs are clear. Heart size is normal and central vasculature is within normal limit s. No pleural effusion or pneumothorax seen. No acute bony finding noted. No aortic abnormality. No significant change from comparison. IMPRESSION: No acute cardiopulmonary process.
[2019-08-27 13:53] VITALS: BP 127/97; TEMP 97.8; O2SAT 99
== END 2019-08-27 13:47 | disposition home or self-care (01) ==
LOC: ER 11:36
DX: J03.90 Acute tonsillitis, unspecified (principal); Z72.0 Tobacco use
CPT/HCPCS: 71046; 87070; 87081; 87804; 99283

== ENCOUNTER 2019-11-23 04:39 | Emergency (ER) | payer SELFPAY ==
--- OUTSIDE RECORDS SUMMARY | 2019-11-23 04:42 | XMS REPORT ---
:1995 [facility] Address [address] [place] [address] [address]. Prad[address] [place] [address] Care Team Providers Name Role Phone Unavailable Unavailable Unavailable Problems This patient has no known problems. Allergies, Adverse Reactions, Alerts This patient has no known allergies or adverse reactions. Medications This patient has no known medications.
[2019-11-23] MEDS ORDERED: NA CHLORIDE 0.9% 1,000 ML ONE (05:07)
[2019-11-23] MEDS ORDERED: MORPHINE 4 MG/ML SYR ONE (05:07)
[2019-11-23] MEDS ORDERED: ONDANSETRON 4 MG/2 ML VIAL ONE (05:08)
[2019-11-23 05:42] LABS: Absolute Lymphocytes (CBC) 2.6 K/uL (0.7-4.9); Basophils % 0.4 % (0-1.3); Hematocrit 44.3 % (39.6-49.0); Lymphocytes % 28.9 % (15.3-44.8); MPV 9.5 fL (7.6-11.3); RBC Red Blood Cell Count 4.92 M/uL (4.33-5.43)
[2019-11-23 05:55] LABS: ALT/SGPT 56 U/L (12-78); AST/SGOT 23 U/L (15-37); Albumin 3.9 g/dL (3.4-5.0); Alkaline Phosphatase 119 U/L (45-117); BUN Blood Urea Nitrogen 17 mg/dL (7-18); Bicarbonate 27 mmol/L (21-32); Bilirubin Direct < 0.1 mg/dL (0-0.2); Bilirubin Total 0.3 mg/dL (0.2-1.0); Glucose Level 101 mg/dL (74-106); Lipase 200 U/L (73-393); Potassium 3.8 mmol/L (3.5-5.1); Protein, Total 7.4 g/dL (6.4-8.2); Sodium Level 141 mmol/L (136-145)
--- NOTE | 2019-11-23 07:42 | RAD REPORT ---
EXAM DESCRIPTION: CT - Abdomen Pelvis W Contrast - 11/23/2019 6:57 am CLINICAL HISTORY: ABD PAIN COMPARISON: No comparisons TECHNIQUE: Biphasic, helical CT imaging of the abdomen and pelvis was performed following 100 ml non -ionic IV contrast. Oral contrast given. All CT scans are performed using dose optimization technique as appropriate and may include automated exposure control or mA/KV adjustment according to patient size. FINDINGS: No suspicious findings in the lung bases. Minimal atelectasis in each lung base. The liver, spleen, and pancreas show no suspicious findings. Gallbladder and biliary tree are also wi thout suspicious finding. Symmetric renal function is seen with no hydronephrosis or suspicious renal mass. No pyelonephritis o r acute parenchymal process. No bladder abnormalities. No adrenal abnormalities. No dilated bowel loops or bowel wall thickening. The appendix is normal. Patient has a few small sub centimeter mesenteric lymph nodes. Few phleboliths are seen along the pelvic floor. No free air, free fluid or inflammatory stranding. No hernia, mass or bulky lymphadenopathy. No suspicious bony findings. IMPRESSION: No appendicitis or other emergent CT abdomen and pelvis finding. Patient has a few mesenteric lymph nodes that are nonspecific. No acute or GI process seen.
--- NOTE | 2019-11-23 08:01 | EDPHYS ---
Physician Documentation [facility] Name: Kirk Olsen Age: 23 yrs Sex: Male : 1995 Arrival Date: 11/23/2019 Time: 04:42 Bed 5 Private MD: ED Physician Randolph Posada HPI: 11/23 05:00 This 23 yrs old Male presents to ER via Ambulatory with complaints of ruth Nausea/Vomiting, Abdominal Pain. 05:00 The patient presents to the emergency department with nausea, that is mild, that is ruth moderate. Onset: The symptoms/episode began/occurred 2 day(s) ago. Possible causes: unknown. The symptoms are aggravated by nothing. The symptoms are alleviated by. Associated signs and symptoms: The patient has no apparent associated signs or symptoms. Severity of symptoms: At their worst the symptoms were mild moderate in the emergency department the symptoms are unchanged. The patient has not experienced similar symptoms in the past. Historical: - Allergies: 04:50 No Known Allergies; bb - Home Meds: 04:50 None [Active]; bb - PMHx: 04:50 None; bb - PSHx: 04:50 nose surgery; bb - Immunization history:: Adult Immunizations up to date. - Social history:: Smoking status: Patient uses tobacco products, denies chronic smoking, but will smoke occasionally, Patient/guardian denies using alcohol. - Ebola Screening: : No symptoms or risks identified at this time. ROS: 05:02 Constitutional: Negative for fever, chills, and weight loss, Eyes: Negative for injury, ruth pain, redness, and discharge, ENT: Negative for injury, pain, and discharge, Neck: Negative for injury, pain, and swelling, Cardiovascular: Negative for chest pain, palpitations, and edema, Respiratory: Negative for shortness of breath, cough, wheezing, and pleuritic chest pain, Back: Negative for injury and pain, : Negative for injury, bleeding, discharge, and swelling, MS/Extremity: Negative for injury and deformity, Skin: Negative for injury, rash, and discoloration, Neuro: Negative for headache, weakness, numbness, tingling, and seizure, Psych: Negative for depression, anxiety, suicide ideation, homicidal ideation, and hallucinations, Allergy/Immunology: Negative for hives, rash, and allergies, Endocrine: Negative for neck swelling, polydipsia, polyuria, polyphagia, and marked weight changes, Hematologic/Lymphatic: Negative for swollen nodes, abnormal bleeding, and unusual bruising. 05:02 Abdomen/GI: Positive for abdominal pain, nausea, vomiting, abdominal cramps, of the right upper quadrant and right lower quadrant. Exam: 05:02 Constitutional: This is a well developed, well nourished patient who is awake, alert, ruth and in no acute distress. Head/Face: Normocephalic, atraumatic. Eyes: Pupils equal round and reactive to light, extra-ocular motions intact. Lids and lashes normal. Conjunctiva and sclera are non-icteric and not injected. Cornea within normal limits. Periorbital areas with no swelling, redness, or edema. ENT: Nares patent. No nasal discharge, no septal abnormalities noted. Tympanic membranes are normal and external auditory canals are clear. Oropharynx with no redness, swelling, or masses, exudates, or evidence of obstruction, uvula midline. Mucous membranes moist. Neck: Trachea midline, no thyromegaly or masses palpated, and no cervical lymphadenopathy. Supple, full range of motion without nuchal rigidity, or vertebral point tenderness. No Meningismus. Chest/axilla: Normal chest wall appearance and motion. Nontender with no deformity. No lesions are appreciated. Cardiovascular: Regular rate and rhythm with a normal S1 and S2. No gallops, murmurs, or rubs. Normal PMI, no JVD. No pulse deficits. Respiratory: Lungs have equal breath sounds bilaterally, clear to auscultation and percussion. No rales, rhonchi or wheezes noted. No increased work of breathing, no retractions or nasal flaring. Back: No spinal tenderness. No costovertebral tenderness. Full range of motion. Male : Normal genitalia with no discharge or lesions. Skin: Warm, dry with normal turgor. Normal color with no rashes, no lesions, and no evidence of cellulitis. MS/ Extremity: Pulses equal, no cyanosis. Neurovascular intact. Full, normal range of motion. Neuro: Awake and alert, GCS 15, oriented to person, place, time, and situation. Cranial nerves II-XII grossly intact. Motor strength 5/5 in all extremities. Sensory grossly intact. Cerebellar exam normal. Normal gait. Psych: Awake, alert, with orientation to person, place and time. Behavior, mood, and affect are within normal limits. 05:02 Abdomen/GI: Inspection: abdomen appears normal, Bowel sounds: hyperactive, Palpation: mild abdominal tenderness, moderate abdominal tenderness, in the right upper quadrant and right lower quadrant, Liver: no appreciated palpable abnormalities, Hernia: not appreciated. Vital Signs: 04:50 BP 144 / 84; Pulse 68; Resp 14 S; Temp 98(O); Pulse Ox 99% on R/A; Weight 86.18 kg (R); bb Height 5 ft. 5 in. (165.10 cm) (R); Pain 6/10; 06:06 BP 129 / 90; Pulse 68; Resp 16 S; Pulse Ox 97% on R/A; jd3 07:15 BP 127 / 89; Pulse 67; Resp 18; Pulse Ox 97% on R/A; ph 08:12 BP 132 / 91; Pulse 69; Resp 18; Temp 97.2; Pulse Ox 99% on R/A; ph 04:50 Body Mass Index 31.62 (86.18 kg, 165.10 cm) bb MDM: 04:57 Patient medically screened. [facility] 05:05 Data reviewed: vital signs, nurses notes, lab test result(s), radiologic studies, CT ruth scan. 11/23 04:57 Order name: Basic Metabolic Panel; Complete Time: 07:00 [facility] 11/23 04:57 Order name: CBC with Diff; Complete Time: 07:00 [facility] 11/23 04:57 Order name: Creatinine for Radiology; Complete Time: 07:00 [facility] 11/23 04:57 Order name: Hepatic Function; Complete Time: 07:00 [facility] 11/23 04:57 Order name: Lipase; Complete Time: 07:00 [facility] 11/23 05:00 Order name: CT Abd/Pelvis - PO and IV Contrast; Complete Time: 07:50 [facility] 11/23 04:57 Order name: IV Saline Lock; Complete Time: 05:02 [facility] 11/23 04:57 Order name: Labs collected and sent; Complete Time: 05:02 [facility] Administered Medications: 05:11 Drug: NS 0.9% 1000 ml Route: IV; Rate: 1 bolus; Site: right antecubital; jd3 07:30 Follow up: Response: No adverse reaction; IV Status: Completed infusion; IV Intake: ph 1000ml 05:11 Drug: Zofran 4 mg Route: IVP; Site: right antecubital; jd3 07:00 Follow up: Response: No adverse reaction ph 05:11 Drug: morphine 4 mg Route: IVP; Site: right antecubital; jd3 07:00 Follow up: Response: No adverse reaction; RASS: Alert and Calm (0) ph Disposition: 11/23/19 07:52 Discharged to Home. Impression: Abdominal tenderness, Vomiting, Nonspecific mesenteric lymphadenitis. - Condition is Stable. - Discharge Instructions: Abdominal Pain, Adult, Nausea and Vomiting, Adult, Abdominal Pain, Adult, [id number]. - Prescriptions for Bentyl 20 mg Oral Tablet - take 1 tablet by ORAL route every 6 hours As needed; 20 tablet. Pepcid 20 mg Oral Tablet - take 1 tablet by ORAL route every 12 hours for 10 days; 20 tablet. Zofran 4 mg Oral Tablet - take 1 tablet by ORAL route every 12 hours As needed; 20 tablet. - Medication Reconciliation Form, Thank You Letter, Antibiotic Education, Prescription Opioid Use, Work release form form. - Follow up: Private Physician; When: 2 - 3 days; Reason: Recheck today's complaints, Re-evaluation by your physician. Follow up: Brian Villa MD; When: 2 - 3 days; Reason: Recheck today's complaints, Re-evaluation by your physician. - Problem is new. - Symptoms have improved. Signatures: Dispatcher [employer] EDMS Randolph Posada MD MD cha Ballard, Brenda, RN RN Franca Mosquera ph D, RN RNavies, Jonathon, RN RN jd3 Corrections: (The following items were deleted from the chart) 07:52 07:52 11/23/2019 07:52 Discharged to Home. Impression: Abdominal tendernessVomiting; ruth Nonspecific mesenteric lymphadenitis. Condition is Stable. Forms are Medication Reconciliation Form, Thank You Letter, Antibiotic Education, Prescription Opioid Use. Follow up: Private Physician; When: 2 - 3 days; Reason: Recheck today's complaints, Re-evaluation by your physician. Problem is new. Symptoms have improved. ruth 08:20 07:52 11/23/2019 07:52 Discharged to Home. Impression: Abdominal tendernessVomiting; ph Nonspecific mesenteric lymphadenitis. Condition is Stable. Forms are Medication Reconciliation Form, Thank You Letter, Antibiotic Education, Prescription Opioid Use. Follow up: Private Physician; When: 2 - 3 days; Reason: Recheck today's complaints, Re-evaluation by your physician. Follow up: Brian Villa; When: 2 - 3 days; Reason: Recheck today's complaints, Re-evaluation by your physician. Problem is new. Symptoms have improved. ruth
--- NOTE | 2019-11-23 08:01 | ER ---
Nurse's Notes [facility] Name: Kirk Olsen Age: 23 yrs Sex: Male : 1995 Arrival Date: 11/23/2019 Time: 04:42 Bed 5 Private MD: Diagnosis: Vomiting;Abdominal tenderness;Nonspecific mesenteric lymphadenitis Presentation: 11/23 04:47 Presenting complaint: Patient states: he started having lower abdominal cramping approx bb 24 hours the pain was intermittent through the day then he started vomiting last night approx 2130 has vomited x 4 last one after he got here. He had diarrhea yesterday. Denies fever. Transition of care: patient was not received from another setting of care. Onset of symptoms was November 22, 2019. Risk Assessment: Do you want to hurt yourself or someone else? Patient reports no desire to harm self or others. Initial Sepsis Screen: Does the patient meet any 2 criteria? No. Patient's initial sepsis screen is negative. Does the patient have a suspected source of infection? No. Patient's initial sepsis screen is negative. Care prior to arrival: None. 04:47 Method Of Arrival: Ambulatory bb 04:47 Acuity: ADAM 3 bb Historical: - Allergies: 04:50 No Known Allergies; bb - Home Meds: 04:50 None [Active]; bb - PMHx: 04:50 None; bb - PSHx: 04:50 nose surgery; bb - Immunization history:: Adult Immunizations up to date. - Social history:: Smoking status: Patient uses tobacco products, denies chronic smoking, but will smoke occasionally, Patient/guardian denies using alcohol. - Ebola Screening: : No symptoms or risks identified at this time. Screenin:42 Abuse screen: Denies threats or abuse. Nutritional screening: No deficits noted. jd3 Tuberculosis screening: No symptoms or risk factors identified. Fall Risk IV access (20 points). Ambulatory Aid- None/Bed Rest/Nurse Assist (0 pts). Gait- Normal/Bed Rest/Wheelchair (0 pts) Mental Status- Oriented to own ability (0 pts). Total Morley Fall Scale indicates No Risk (0-24 pts). Assessment: 05:00 General: Appears in no apparent distress. uncomfortable, Behavior is calm, cooperative, jd3 appropriate for age. Pain: Complains of pain in abdomen Quality of pain is described as sharp. Neuro: Level of Consciousness is awake, alert, obeys commands, Oriented to person, place, time, situation. Cardiovascular: Denies chest pain, Capillary refill < 3 seconds Patient's skin is warm and dry. Respiratory: Airway is patent Respiratory effort is even, unlabored, Respiratory pattern is regular, symmetrical, Denies cough, shortness of breath. GI: Abdomen is round non-distended, Reports lower abdominal pain, upper abdominal pain, nausea, vomiting. : No signs and/or symptoms were reported regarding the genitourinary system. EENT: No signs and/or symptoms were reported regarding the EENT system. Derm: Skin is intact, Skin is dry, Skin is normal, Skin temperature is warm. Musculoskeletal: Circulation, motion, and sensation intact. Range of motion: intact in all extremities. 06:06 Reassessment: Patient appears in no apparent distress at this time. No changes from jd3 previously documented assessment. Patient and/or family updated on plan of care and expected duration. Pain level reassessed. Patient is alert, oriented x 3, equal unlabored respirations, skin warm/dry/pink. 07:15 Reassessment: Patient appears in no apparent distress at this time. Patient and/or ph family updated on plan of care and expected duration. Pain level reassessed. Patient is alert, oriented x 3, equal unlabored respirations, skin warm/dry/pink. Pt resting quietly, awaiting CT results. 08:11 Reassessment: Patient appears in no apparent distress at this time. Patient and/or ph family updated on plan of care and expected duration. Pain level reassessed. Patient is alert, oriented x 3, equal unlabored respirations, skin warm/dry/pink. ERP at bedside to speak w/ pt, d/c pending. Vital Signs: 04:50 BP 144 / 84; Pulse 68; Resp 14 S; Temp 98(O); Pulse Ox 99% on R/A; Weight 86.18 kg (R); bb Height 5 ft. 5 in. (165.10 cm) (R); Pain 6/10; 06:06 BP 129 / 90; Pulse 68; Resp 16 S; Pulse Ox 97% on R/A; jd3 07:15 BP 127 / 89; Pulse 67; Resp 18; Pulse Ox 97% on R/A; ph 08:12 BP 132 / 91; Pulse 69; Resp 18; Temp 97.2; Pulse Ox 99% on R/A; ph 04:50 Body Mass Index 31.62 (86.18 kg, 165.10 cm) bb ED Course: 04:42 Patient arrived in ED. cl3 04:49 Triage completed. bb 04:50 Arm band placed on Patient placed in an exam room, on a stretcher, on pulse oximetry. bb 04:56 Randolph Posada MD is Attending Physician. ruth 05:01 Initial lab(s) drawn, by sc, sent to lab. Inserted saline lock: 18 gauge in right bb antecubital area, using aseptic technique. Blood collected. 05:11 Conrad Nichols RN is Primary Nurse. jd3 05:43 Patient has correct armband on for positive identification. Placed in gown. Bed in low jd3 position. Call light in reach. Side rails up X 1. 07:29 CT Abd/Pelvis - PO and IV Contrast In Process Unspecified. EDMS 07:52 Brian Villa MD is Referral Physician. ruth 08:12 No provider procedures requiring assistance completed. IV discontinued, intact, ph bleeding controlled, No redness/swelling at site. Pressure dressing applied. Administered Medications: 05:11 Drug: NS 0.9% 1000 ml Route: IV; Rate: 1 bolus; Site: right antecubital; jd3 07:30 Follow up: Response: No adverse reaction; IV Status: Completed infusion; IV Intake: ph 1000ml 05:11 Drug: Zofran 4 mg Route: IVP; Site: right antecubital; jd3 07:00 Follow up: Response: No adverse reaction ph 05:11 Drug: morphine 4 mg Route: IVP; Site: right antecubital; jd3 07:00 Follow up: Response: No adverse reaction; RASS: Alert and Calm (0) ph Intake: 07:30 IV: 1000ml; Total: 1000ml. ph Outcome: 07:52 Discharge ordered by . ruth 08:17 Discharged to home ambulatory. ph 08:17 Condition: good 08:17 Discharge instructions given to patient, Instructed on discharge instructions, follow up and referral plans. medication usage, Demonstrated understanding of instructions, follow-up care, medications, Prescriptions given X 3. 08:20 Patient left the ED. ph Signatures: Dispatcher [employer] Randolph Denton MD MD cha Ballard, Brenda, RN RN Franca Mosquera RN RN Conrad Mcrae RN RN jd3 Lewis, Charde cl3
[2019-11-23 08:32] VITALS: BP 132/91; TEMP 97.2; O2SAT 99
== END 2019-11-23 08:20 | disposition home or self-care (01) ==
LOC: ER 04:39
DX: I88.0 Nonspecific mesenteric lymphadenitis (principal); R10.819 Abdominal tenderness, unspecified site; Z72.0 Tobacco use
CPT/HCPCS: 36415; 74177; 80048; 80076; 83690; 85025; 96361; 96374; 96375; 99284; J2405; J7030; Q9967

== ENCOUNTER 2020-03-19 18:57 | Emergency (ER) | payer SELFPAY ==
--- OUTSIDE RECORDS SUMMARY | 2020-03-19 18:59 | XMS REPORT ---
:1995 Author Organization [facility] t Address [address] [place] [address] Dr. Pradhan [address] [place] [address] Care Team Providers Name Role Phone Unavailable Unavailable Unavailable Problems This patient has no known problems. Allergies, Adverse Reactions, Alerts This patient has no known allergies or adverse reactions. Medications This patient has no known medications.
--- OUTSIDE RECORDS SUMMARY | 2020-03-19 18:59 | XMS REPORT | Summary of Care ---
:1995 Author Organization [facility] - Health Address [address] [place] [address] Care Team Providers Name Role Phone Pcp, Patient Does Not Have A Primary Care Provider +[id number] Encounter Details Date Type Department Care Team Description 12/10/2019 Orders Only [facility] Doctor Unassigned, No [address] [facility] [place] [address] [address] [place] [address] Allergies No Known Allergiesdocumented as of this encounter (statuses as of 12/10/2019) Medications Medication Sig Dispensed Refills Start Date End Date Status Butalbital-Acetaminop Take 2 capsules by 12 capsule 0 03/23/20 18 Active hen-Caff (FIORICET) mouth every 8 50-300-40 mg per (eight) hours as capsule needed for Pain (scale 4-6) (HEADACHE). sulfamethoxazole-trim Take 1 tablet by 20 tablet 0 05/28/2018 Active ethoprim 800-160 mg mouth every 12 per tablet (twelve) hours. traMADOL (ULTRAM) 50 Take 1 tablet by 20 tablet 0 05/28/2018 Active mg tablet mouth every 6 (six) hours as needed for Pain (scale 4-6). ibuprofen 800 mg Take 1 tablet by 30 tablet 0 02/14/2019 Active tabletIndications: mouth every 8 Left foot pain (eight) hours. traMADOL 50 mg Take 1 tablet by 30 tablet 0 02/14/2019 Active tabletIndications: mouth every 6 Left foot pain (six) hours as needed for Pain (scale 4-6). documented as of this encounter (statuses as of 12/10/2019) Active Problems No known active problemsdocumented as of this encounter (statuses as of 12/10/2019) Social History Tobacco Use Types Packs/Day Years Used Date Never Assessed Sex Assigned at Date Recorded Not on file Job Start Date Occupation Industry Not on file Not on file Not on file Travel History Travel Start Travel End No recent travel history available. documented as of this encounter Last Filed Vital Signs Not on filedocumented in this encounter Plan of Treatment Health Maintenance Due Date Last Done Comments VARICELLA VACCINES (1 of 2 - 13+ 2006 2-dose series) DTaP,Tdap,and Td Vaccines (1 - 2012 Tdap) INFLUENZA VACCINE (#1) 2019 HPV VACCINES Aged Out No longer eligib le based on patient's age to complete this topic PNEUMOCOCCAL 0-64 YEARS COMBINED Aged Out No longer eligible based on SERIES patient's age to complete this topic documented as of this encounter Procedures Procedure Name Priority Date/Time Associated Diagnosis Comme nts CONSENT/REFUSAL FOR Routine 12/10/2019 5:32 AM [employer]CH[employer]ICIAN DIAGNOSIS AND TREATMENT documented in this encounter Results Not on filedocumented in this encounter
--- OUTSIDE RECORDS SUMMARY | 2020-03-19 19:00 | XMS REPORT | Summary of Care ---
:1995 Author Organization [facility] Address [address] [place] [id number] Care Team Providers Name Role Phone Pcp, Patient Does Not Have A Primary Care Provider +[id number] Reason for Referral MRI/CAT Scan (STAT) Status Reason Specialty Diagnoses / Referred By Referred To Procedures Contact Contact New Request Diagnostic Diagnoses Neck pain Ortega Meyer, Radiology Procedures CT CERVICAL SPINE WO CONTRAST DO [address] [facility]. [address] [place] [address] Reason for Visit Reason Comments Neck Pain Auth/Cert Status Reason Specialty Diagnoses / Referred By Referred To Procedures Contact Contact Emergency Medicine Diagnoses NECK PAIN [facility] Emergency Dept [address] [facility] [place] [address] Fax: Encounter Details Date Type Department Care Team Description 12/10/2019 Emergency ADC-Emergency Ortega Meyer DO Influenza-like illness (Primary Dx); Department [address] [facility] Neck pain; [address] [facility] [address] [place] [address] [place], [place] [id number] Allergies No Known Allergiesdocumented as of this encounter (statuses as of 12/10/2019) Medications Medication Sig Dispensed Refills Start Date End Date Status Butalbital-Acetaminoph Take 2 capsules 12 capsule 0 03/23/2018 Active en-Caff (FIORICET) by mouth every 8 50-300-40 mg per (eight) hours as capsule needed for Pain (scale 4-6) (HEADACHE). sulfamethoxazole-trime Take 1 tablet by 20 tablet 0 05/28/2018 Active thoprim 800-160 mg per mouth every 12 tablet (twelve) hours. traMADOL (ULTRAM) 50 Take [...] Take 1 tablet by 30 tablet 0 12/10/2019 Active tabletIndications: mouth every 8 Influenza-like (eight) hours. illness, Neck pain, Myalgia methocarbamol 750 mg Take 1 tablet by 20 tablet 0 12/10/2019 Active tabletIndications: mouth 4 (four) Influenza-like times daily. illness, Neck pain, Myalgia documented as of this encounter (statuses as [...] of this encounter Last Filed Vital Signs Vital Sign Reading Time Taken Comments Blood Pressure 115/72 12/10/2019 9:00 AM LINEN CLERK Pulse 61 12/10/2019 9:00 AM LINEN CLERK Temperature 36.2 C (97.1 F) 12/10/2019 5:45 AM LINEN CLERK Respiratory Rate 18 12/10/2019 9:00 AM LINEN CLERK Oxygen Saturation 97% 12/10/2019 9:00 AM LINEN CLERK Inhaled Oxygen Concentration - - Weight 86.2 kg (190 lb) 12/10/2019 5:45 AM LINEN CLERK Height - - Body Mass Index 32.61 03/23/2018 11:49 AM CDT documented in this encounter Discharge Instructions InstructionsJamil Kincaid MD - 12/10/2019 RETURN FOR ANY QUESTIONS OR CONCERNS Today you were seen by Jamil Kincaid Jr., MD You were seen today for Chief Complaint Patient presents with Neck Pain Your ER diagnosis was ICD-10-CM ICD-9-CM 1. Influenza-like illness R69 799.89 2. Neck pain M54.2 723.1 3. Myalgia M79.10 729.1 NO LIFE-THREATENING FINDINGS ON TODAY'S EXAM. YOUR PRESCRIPTIONS : Check out [employer] for medication discounts Medication List ASK your doctor about these medications Finanadixk-Xzuacaxawvvor-Iuwg 50-300-40 mg per capsule Commonly known as: FIORICET Take 2 capsules by mouth every 8 (eight) hours as needed for Pain (scale 4-6) (HEADACHE). ibuprofen 800 mg tablet Commonly known as: IBU Take 1 tablet by mouth every 8 (eight) hours. sulfamethoxazole-trimethoprim 800-160 mg per tablet Commonly known as: BACTRIM DS Take 1 tablet by mouth every 12 (twelve) hours. * traMADol 50 mg tablet Commonly known as: ULTRAM Take 1 tablet by mouth every 6 (six) hours as needed for Pain (scale 4-6). * traMADol 50 mg tablet Commonly known as: ULTRAM Take 1 tablet by mouth every 6 (six) hours as needed for Pain (scale 4-6). * This list has 2 medication(s) that are the same as other medications prescribed for you. Read thedirections carefully, and ask your doctor or other care provider to review them with you. ER precautions and follow up : 1. Return to ER if your symptoms should worsen or fail to improve within 72 hours. 2. The care provided in the emergency room was for acute problems only. 3. You should follow up with your primary care provider within 72 hours. 4. Fill and take all your medications as prescribed. 5. Make sure you are staying adequately hydrated. Busque attencion immediatamente si usted tiene los sitomas sigue, vuelve peor o si hay sitomas nuevas o para cualquiera preoccupacion incluyendo dolor del pecho, falta aire, se siente debile, mas fievre, mas dolor, nausea, vomitando, sangrando que no es normal, confusion, baja or pierdas conciencia. MAY FOLLOW-UP WITH A PROVIDER OF YOUR CHOICE, SUCH : 1. A PHYSICIAN OF YOUR CHOICE 2. [facility], . LOCATIONS IN [facility] 3. [facility], [address] [place], [place]; [phone] OR, IF YOU WISH TO FOLLOW-UP WITHIN THE [facility], MAY TRY THESE OPTIONS (CLINIC APPOINTMENTS AVAILABLE ON [id number] BASIS): 1. SCHEDULE AN APPOINTMENT ONLINE AT [facility] 2. OR CALL THE [facility] ACCESS CENTER AT OR 3. OR CALL YOUR [facility] PHYSICIAN'S OFFICE DIRECTLY IF YOU ARE ALREADY AN ESTABLISHED [facility] PATIENT. [facility] RETURN TO WORK / SCHOOL EXCUSE Kirk Olsen WAS SEEN IN THE ER AND DISCHARGED 12/10/2019 TODAY, 8:38 AM & May return to Work / School / Incarceration on X with activity as tolerated indicated below. ___The following limitations apply until pt is seen by Physician and cleared to return to normal activity. _X_ Off for two days and return to activity as tolerated at work or school ___ No Sports ___ No work ___ Do not return until fever free for 24 hours. ___ No school JAMIL KINCAID Jr., MD [facility] EMERGENCY DEPRTMENT [address] [place] [address] [place] [address] ### The patient may have been given Narcotic pain medications during their stay in the ED that may show up on a Drug Screen. The hospital discharge paper work will identify these medications. AttachmentsThe following attachments cannot be sent through Care Everywhere.Neck Pain (American)Viral Syndrome (Adult) (American)Cervical Strain, Understanding (American)documented in this encounter Plan of Treatment Name Type Priority Associated Diagnoses Date/Ti me BLOOD CULTURE SCREEN LAB STAT Neck pain 020 6:53 AM LINEN CLERK BLOOD CULTURE SCREEN LAB STAT Influenza-l izabella illness 12/10/2019 7:02 AM LINEN CLERK Neck pain Name Type Priority Associated Diagnoses Order S chedule BLOOD CULTURE SCREEN LAB Routine Neck pain ONCE fo r 1 Occurrences starting 2019 until 12/10/2019 BLOOD CULTURE SCREEN LAB Routine Influenza-l izabella illness ONCE for 1 Occurrences Neck pain starting 2019 until 12/10/2019 Health Maintenance Due Date Last Done Comments VARICELLA VACCINES (1 of 2 - 1994 2-dose childhood series) DTaP,Tdap,and Td Vaccines (1 - 2004 Tdap) INFLUENZA VACCINE (#1) 2019 HPV VACCINES Aged Out No longer eligib le based on patient's age to complete this topic PNEUMOCOCCAL 0-64 YEARS COMBINED Aged Out No longer eligible based on SERIES patient's age to complete this topic documented as of this encounter Procedures Procedure Name Priority Date/Time Associated Comments Diagnosis CREATINE KINASE STAT 12/10/2019 7:23 Influenza-like Result s for this AM LINEN CLERK illness procedure are in Neck pain the results section. CBC WITH DIFFERENTIAL STAT 12/10/2019 6:53 Neck pain Re sults for this AM LINEN CLERK procedure are i n the results section. CBC WITH DIFFERENTIAL STAT 12/10/2019 6:53 Neck pain Re sults for this AM LINEN CLERK procedure are i n the results section. SEDIMENTATION RATE STAT 12/10/2019 6:53 Neck pain Resul ts for this AM LINEN CLERK procedure are i n the results section. COMP. METABOLIC PANEL STAT 12/10/2019 6:53 Neck pain Re sults for this (02160) AM LINEN CLERK procedure are i n the results section. CT CERVICAL SPINE WO STAT 12/10/2019 6:47 Neck pain Res ults for this CONTRAST AM LINEN CLERK procedure are i n the results section. ADC,CLC OR LCC ONLY - STAT 12/10/2019 6:06 Influenza-like Results for this INFLUENZA A & B DIRECT AM LINEN CLERK illness proce dure are in ANTIGEN the results section. NOTICE OF PRIVACY Routine 12/10/2019 5:33 PRACTICES AM LINEN CLERK documented in this encounter Results CREATINE KINASE (12/10/2019 7:23 AM LINEN CLERK) Pathologist Sig [facility] CK 81 33 - 194 U/L [facility] Specimen Blood - ARM, RIGHT Performing Organization Address City/State/Zipcode Phone Number [facility] CLIA: [id number], [address] [place], [place] [address] CBC WITH DIFFERENTIAL (12/10/2019 6:53 AM LINEN CLERK) Pathologist Sig [facility] WBC 6.21 4.20 - 10.70 [facility] 10*3/L [facility] RBC 4.91 4.26 - 5.52 [facility] 10*6/L [facility] HGB 14.6 12.2 - 16.4 g/dL [facility] HCT 43.8 38.4 - 49.3 % [facility] MCV 89.2 81.7 - 95.6 fL [facility] MCH 29.7 26.1 - 32.7 pg [facility] MCHC 33.3 31.2 - 35.0 g/dL [facility] RDW-SD 39.9 38.5 - 51.6 fL [facility] RDW-CV 12.1 12.1 - 15.4 % [facility] PLT 183 150 - 328 [facility] 10*3/L [facility] MPV 10.7 9.8 - 13.0 fL [facility] NRBC/100 WBC 0.0 0.0 - 10.0 /100 [facility] WBCs [facility] NRBC x10^3 <0.01 10*3/L [facility] GRAN MAT (NEUT) % 65.0 % [facility] IMM GRAN % 0.50 % [facility] LYMPH % 18.4 % [facility] MONO % 12.7 % [facility] EOS % 3.2 % [facility] BASO % 0.2 % [facility] GRAN MAT x10^3(ANC) 4.04 1.99 - 6.95 [facility] 10*3/uL [facility] IMM GRAN x10^3 0.03 0.00 - 0.06 [facility] 10*3/uL [facility] LYMPH x10^3 1.14 1.09 - 3.23 [facility] 10*3/uL [facility] MONO x10^3 0.79 0.36 - 1.02 [facility] 10*3/uL HOSPITAL [facility] EOS x10^3 0.20 0.06 - 0.53 [facility] 10*3/uL [facility] BASO x10^3 <0.03 0.01 - 0.[address]3/uL [facility] Specimen Blood - ARM, LEFT Performing Organization Address City/State/Zipcode Phone Number [facility] CLIA: [id number], [address] [place], [place] [address] SEDIMENTATION RATE (12/10/2019 6:53 AM LINEN CLERK) Pathologist Sig nature ESR 7 0 - 10 mm/HR [facility] Specimen Blood - ARM, LEFT Performing Organization Address City/State/Zipcode Phone Number [facility] CLIA: [id number], [address] [place], [place] [address] COMP. METABOLIC PANEL (30733) (12/10/2019 6:53 AM LINEN CLERK) Pathologist [facility] NA 138 135 - 145 [facility] mmol/L HOSPITAL [facility] K 3.5 3.5 - 5.0 [facility] mmol/L [facility] CL 104 98 - 108 mmol/L [facility] CO2 TOTAL 23 23 - 31 mmol/L [facility] AGAP 11 2 - 16 [facility] BUN 14 7 - 23 mg/dL [facility] GLUCOSE 119 (H) 70 - 110 mg/dL [facility] CREATININE 1.00 0.60 - 1.25 [facility] mg/dL [facility] TOTAL BILI 0.4 0.1 - 1.1 mg/dL [facility] CALCIUM 9.2 8.6 - 10.6 [facility] mg/dL [facility] T PROTEIN 7.4 6.3 - 8.2 g/dL [facility] ALBUMIN 4.0 3.5 - 5.0 g/dL [facility] ALK PHOS 116 34 - 122 U/L [facility] ALTv 20 5 - 50 U/L [facility] AST(SGOT) 24 13 - 40 U/L [facility] eGFR Calculation 91.0 mL/min/1.73m2 [facility] (Non-[facility] LABORATORY Mold[place]) eGFR Calculation 110.3 mL/min/1.73m2 [facility] () [facility] Specimen Blood - ARM, LEFT Narrative Performed At Association of Glomerular Filtration Rate (GFR) [facility] and Staging of Kidney Disease* + + +- + | GFR (mL/min/1.73 m2) | With Kidney Damage | Without Kidney Damage + + +- + | >90 | Stage one | Normal + + +- + | 60-89 | Stage two | Decreased GFR + + +- + | 30-59 | Stage three | Stage three + + +- + | 15-29 | Stage four | Stage four + + +- + | <15 (or dialysis) | Stage five | Stage five + + +- + *Each stage assumes the associated GFR level has been in effect for at least three months. Stages 1 to 5, with or without kidney disease, indicate chronic kidney disease. Notes: Determination of stages one and two (with eGFR >59mL/min/1.73 m2) requires estimation of kidney damage for at least three months as defined by structural or functional abnormalities of the kidney, manifested by either: Pathological abnormalities or Markers of kidney damage (including abnormalities in the composition of the blood or urine or abnormalities in imaging tests). Performing Organization Address City/State/Zipcode Phone Number [facility] CLIA: [id number], [address] [place], [place] [address] CERVICAL SPINE WO CONTRAST (12/10/2019 6:47 AM LINEN CLERK) Specimen Impressions Performed At Unremarkable CT of the cervical spine PACS/VR/DOSE RL: [id number] AFC: [id number] End of report 6 :54 AM Narrative Performed At ORDERING PHYSICIAN: ORTEGA MEYER PACS/VR/DOSE TECHNIQUE: Multidetector helical scannin g of the cervical spine was performed without intravenous contrast. CT scan was performed according to the A HELEN (as low as reasonably achievable) principal. INDICATION: Radiculopathy COMPARISON: None DISCUSSION: There are no acute cervical spine fractures. The cer vical spinal alignment is within normal limits. No significan t degenerative changes are noted throughout the cervical spine. Soft tissue windows show no significant disc protrusion or extrusion. The paraspinal musculature is normal. The lung apices are clear. The airway is widely patent. Procedure Note [facility], Radiant Results Inft User - 2019 6:56 AM LINEN CLERK ORDERING PHYSICIAN: ORTEGA MEYER TECHNIQUE: Multidetector helical scannin g of the cervical spine was performed without intravenous contrast. CT scan was performed according to the A HELEN (as low as reasonably achievable) principal. INDICATION: Radiculopathy COMPARISON: None DISCUSSION: There are no acute cervical spine fractu res. The cervical spinal alignment is within normal limits. No significant degenerative changes are noted throughout the cervical spine. Soft tissue windows show no significant disc protrusion or extrusion. The paraspinal musculature is normal. The lung apices are clear. The airway i s widely patent. IMPRESSION Unremarkable CT of the cervical spine RL: [id number] AFC: [id number] End of report Performing Organization Address City/State/Zipcode Phone Number PACS/VR/DOSE ADC,CLC OR LCC ONLY - INFLUENZA A & B DIRECT ANTIGEN (12/10/2019 6:06 AM LINEN CLERK) Pathologist Sig nature Influenza A Negative Negative [facility] Influenza B Negative Negative [facility] Specimen Swab - NARE, LEFT SIDE Performing Organization Address City/[facility]/Zipcode Phone Number [facility] CLIA: [id number], [address] [place], [place] [address] documented in this encounter Visit Diagnoses Diagnosis Influenza-like illness - Primary Influenza with other respiratory manifes tations Neck pain Cervicalgia Myalgia Mylagia and myositis, unspecified documented in this encounter Administered Medications Medication Order MAR Action Action Date Dose Rate Site dexamethasone (DECADRON PHOSPHATE) Given 12/10/2019 6:12 AM LINEN CLERK 10 mg injection 10 mg 10 mg, Oral, ONCE, 1 dose, 12/10/19 at 0715, Routine ketorolac (TORADOL) injection Given 12/10/2019 6:12 AM LINEN CLERK 30 m g Right Deltoid-IM 30 mg 30 mg, Intramuscular, ONCE, 1 dose, 12/10/19 at 0715, DORIAN, cafe team member approving Restricted medication: ORTEGA MEYER NaCl 0.9% (NS) bolus infusion New Bag 12/10/2019 7:18 AM LINEN CLERK 1,000 mL 999 mL/hr 1,000 mL at 999 mL/hr, 1,000 mL, IV Infusion, ONCE, 1 dose, 12/10/19 at 0815, STAT documented in this encounter"
[2020-03-19] MEDS ORDERED: LIDOCAINE 1% MPF 5 ML VIAL ONE (19:20)
--- NOTE | 2020-03-19 19:30 | ER ---
Nurse's Notes [facility] Name: Kirk Olsen Age: 24 yrs Sex: Male : 1995 Arrival Date: 03/19/2020 Time: 18:59 Bed 5 Private MD: Diagnosis: Laceration with foreign body of finger without damage to nail Presentation: 03/19 19:05 Chief complaint: Patient states: Cut right hand 3rd digit just [facility] [employer] on shield cover for ll1 go cart. Bleeding controlled. Coronavirus screen: Proceed with normal triage. Patient denies a cough. Patient denies shortness of breath or difficulty breathing. Patient denies measured and/or subjective temperature greater than 100.4F prior to today's visit. Patient denies travel on a cruise ship or to a country the [facility] currently lists as an affected area. Patient denies contact with known and/or suspected case of COVID-19. Ebola Screen: Patient denies travel to an Ebola-affected area in the 21 days before illness onset. Initial Sepsis Screen: Does the patient meet any 2 criteria? No. Patient's initial sepsis screen is negative. Does the patient have a suspected source of infection? No. Patient's initial sepsis screen is negative. Risk Assessment: Do you want to hurt yourself or someone else? Patient reports no desire to harm self or others. Onset of symptoms was March 19, 2020. 19:05 Method Of Arrival: Ambulatory 1 19:05 Acuity: ADAM 4 ll1 Historical: - Allergies: 19:07 No Known Allergies; ll1 - PMHx: 19:07 None; ll1 - PSHx: 19:07 nose surgery; ll1 - Immunization history:: Last tetanus immunization: up to date < 5 years ago. - Social history:: Smoking status: Patient reports the use of cigarette tobacco products, denies chronic smoking, but will smoke occasionally, Patient/guardian denies using alcohol, the patient reports quitting approximately [address] drugs. Screenin:20 Abuse screen: Denies threats or abuse. Nutritional screening: No deficits noted. ea Tuberculosis screening: No symptoms or risk factors identified. Fall Risk None identified. Assessment: 19:16 General: Appears in no apparent distress. Behavior is appropriate for age. Pain: ea Complains of pain in dorsal aspect of middle phalanx of right middle finger. Neuro: Level of Consciousness is awake, alert, obeys commands, Oriented to person, place, time. Cardiovascular: Patient's skin is warm and dry. Respiratory: Airway is patent Respiratory effort is even, unlabored, Respiratory pattern is regular, symmetrical. Derm: Skin is pink, warm \T\ dry. Injury Description: Laceration sustained to dorsal aspect of middle phalanx of right middle finger is jagged, 0.5 to 2.5 cm long. 19:37 Reassessment: Patient and/or family updated on plan of care and expected duration. Pain ea level reassessed. Patient is alert, oriented x 3, equal unlabored respirations, skin warm/dry/pink. Discharge instruction given to patient, verbalized the understanding of instruction. Pt left ED ambulatory tolerating well. Vital Signs: 19:05 BP 151 / 94; Pulse 60; Resp 18; Temp 98.0; Pulse Ox 100% ; Pain 6/10; ll1 ED Course: 18:59 Patient arrived in ED. mr 19:01 Pb Mckeon PA is PHCP. jr8 19:01 Kevin Perez MD is Attending Physician. jr8 19:06 Triage completed. ll1 19:07 Arm band placed on Patient placed in an exam room, on a stretcher. 1 19:16 Peggy Quezada, RN is Primary Nurse. ea 19:20 Patient has correct armband on for positive identification. Bed in low position. Call ea light in reach. 19:20 Assist provider with laceration repair on dorsal aspect of middle phalanx of right ea middle finger that was 2.5 cm. or less using sutures. Set up tray. Performed by Pb HASSAN Dressed with 4X4s, Neosporin, Patient tolerated well. 19:36 No provider procedures requiring assistance completed. Patient did not have IV access ea during this emergency room visit. Administered Medications: 19:26 Drug: Lidocaine (1 %) 5 mg {Note: administered by provider.} Route: Infiltration; ea Outcome: 19:30 Discharge ordered by . jr8 19:37 Discharged to home ambulatory. ea 19:37 Condition: stable 19:37 Discharge instructions given to patient, Instructed on discharge instructions, follow up and referral plans. Demonstrated understanding of instructions, follow-up care. 19:38 Patient left the ED. ea Signatures: Danna Posey mr Humera Mckeonsh, SONYA PA jr8 Peggy Quezada RN RN ea Lewis, Lynsay, RN RN ll1 Corrections: (The following items were deleted from the chart) 19:07 19:07 Social history: Smoking status: Patient reports the use of cigarette tobacco ll1 products, denies chronic smoking, but will smoke occasionally, Patient uses alcohol, only on a social basis. Patient/guardian denies using street drugs, ll1
--- NOTE | 2020-03-19 19:30 | EDPHYS ---
Physician Documentation [facility] Name: Kirk Olsen Age: 24 yrs Sex: Male : 1995 Arrival Date: 03/19/2020 Time: 18:59 Bed 5 Private MD: ED Physician Kevin Perez HPI: 03/19 19:04 This 24 yrs old Male presents to ER via Unassigned with complaints of Finger jr8 laceration. 19:04 The patient or guardian reports a laceration, clean, 3 cm(s), pain. The complaints jr8 affect the 3rd digit dorsal aspect . Onset: The symptoms/episode began/occurred acutely, today. Modifying factors: The symptoms are alleviated by nothing, the symptoms are aggravated by movement. Associated signs and symptoms: The patient has no apparent associated signs or symptoms. Severity of symptoms: At their worst the symptoms were mild, in the emergency department the symptoms are unchanged. The patient has not experienced similar symptoms in the past. The patient has not recently seen a physician. Patient stated that he was messing with a go cart and cut finger . Historical: - Allergies: 19:07 No Known Allergies; ll1 - PMHx: 19:07 None; ll1 - PSHx: 19:07 nose surgery; ll1 - Immunization history:: Last tetanus immunization: up to date < 5 years ago. - Social history:: Smoking status: Patient reports the use of cigarette tobacco products, denies chronic smoking, but will smoke occasionally, Patient/guardian denies using alcohol, the patient reports quitting approximately [address] drugs. ROS: 19:04 Eyes: Negative for injury, pain, redness, and discharge, ENT: Negative for injury, jr8 pain, and discharge, Neck: Negative for injury, pain, and swelling, Cardiovascular: Negative for chest pain, palpitations, and edema, Respiratory: Negative for shortness of breath, cough, wheezing, and pleuritic chest pain, Abdomen/GI: Negative for abdominal pain, nausea, vomiting, diarrhea, and constipation, Back: Negative for injury and pain, MS/Extremity: Negative for injury and deformity, Neuro: Negative for headache, weakness, numbness, tingling, and seizure. 19:04 Skin: Positive for laceration(s), of the right 3rd digit . Exam: 19:04 Constitutional: This is a well developed, well nourished patient who is awake, alert, jr8 and in no acute distress. Cardiovascular: Regular rate and rhythm with a normal S1 and S2. No gallops, murmurs, or rubs. Normal PMI, no JVD. No pulse deficits. Respiratory: Lungs have equal breath sounds bilaterally, clear to auscultation and percussion. No rales, rhonchi or wheezes noted. No increased work of breathing, no retractions or nasal flaring. MS/ Extremity: Pulses equal, no cyanosis. Neurovascular intact. Full, normal range of motion. Neuro: Awake and alert, GCS 15, oriented to person, place, time, and situation. Cranial nerves II-XII grossly intact. Motor strength 5/5 in all extremities. Sensory grossly intact. Cerebellar exam normal. Normal gait. 19:04 Skin: Patient has 3 cm laceration to dorsal 3rd digit right hand between the PIP and MCP. Bleeding controlled. Normal ROM and strength to affected digit and rest of hand. Vital Signs: 19:05 BP 151 / 94; Pulse 60; Resp 18; Temp 98.0; Pulse Ox 100% ; Pain 6/10; ll1 Laceration: 19:28 Wound Repair of 3cm ( 1.2in ) subcutaneous laceration to dorsal aspect of middle jr8 phalanx of right middle finger. Irregularly shaped.. Hemostasis noted.. Distal neuro/vascular/tendon intact. Anesthesia: Local anesthetic administered with 1 mls of 1% lidocaine. Wound prep: Extensive cleansing with betadine, Wound irrigation with saline, Wound explored extensively. Skin closed with 5 4-0 Prolene using interrupted sutures and sterile technique. Patient tolerated well. MDM: 19:01 Patient medically screened. jr8 19:28 Data reviewed: vital signs, nurses notes, and as a result, I will discharge patient. jr8 Data interpreted: Pulse oximetry: on room air is 100 %. Interpretation: normal. Counseling: I had a detailed discussion with the patient and/or guardian regarding: the historical points, exam findings, and any diagnostic results supporting the discharge/admit diagnosis, the need for outpatient follow up, a family practitioner, to return to the emergency department if symptoms worsen or persist or if there are any questions or concerns that arise at home. 03/19 19:08 Order name: Prolene, Sutures; Complete Time: 19:15 jr8 03/19 19:08 Order name: Dressing - Wound; Complete Time: 19:35 jr8 03/19 19:08 Order name: Gloves, Sterile; Complete Time: 19:15 jr8 03/19 19:08 Order name: Setup Suture Tray; Complete Time: 19:15 8 Administered Medications: 19:26 Drug: Lidocaine (1 %) 5 mg {Note: administered by provider.} Route: Infiltration; ea Disposition: 03/19/20 19:30 Discharged to Home. Impression: Laceration with foreign body of finger without damage to nail. - Condition is Stable. - Discharge Instructions: Laceration Care, Adult. - Medication Reconciliation Form, Thank You Letter, Antibiotic Education, Prescription Opioid Use form. - Follow up: Emergency Department; When: 7 - 10 days; Reason: Wound Recheck, Recheck today's complaints, Continuance of care, Staple/Suture removal, Re-evaluation by your physician. - Problem is new. - Symptoms have improved. Addendum: 03/21/2020 11:36 Co-signature as Attending Physician, Kevin Perez MD I agree with the assessment and k dr plan of care. Signatures: Kevin Perez MD MD kdr Roszak, Josh, PA PA jr8 Peggy Quezada RN RN ea Lewis, Lynsay, RN RN ll1 Corrections: (The following items were deleted from the chart) 03/19 19:07 19:07 Social history: Smoking status: Patient reports the use of cigarette tobacco ll1 products, denies chronic smoking, but will smoke occasionally, Patient uses alcohol, only on a social basis. Patient/guardian denies using street drugs, ll1 19:38 19:30 03/19/2020 19:30 Discharged to Home. Impression: Laceration with foreign body of ea finger without damage to nail. Condition is Stable. Forms are Medication Reconciliation Form, Thank You Letter, Antibiotic Education, Prescription Opioid Use. Follow up: Emergency Department; When: 7 - 10 days; Reason: Wound Recheck, Recheck today's complaints, Continuance of care, Staple/Suture removal, Re-evaluation by your physician. Problem is new. Symptoms have improved. jr8
[2020-03-19 19:45] VITALS: BP 151/94; TEMP 98; O2SAT 100
== END 2020-03-19 19:38 | disposition home or self-care (01) ==
LOC: ER 18:57
PROC: 0JQJ0ZZ Repair Right Hand Subcutaneous Tissue and Fascia, Open Approach (ICD-10-PCS; principal; 2020-03-19)
DX: S61.212A Laceration without foreign body of right middle finger without damage to nail, initial encounter (principal); W26.8XXA Contact with other sharp object(s), not elsewhere classified, initial encounter; Y93.9 Activity, unspecified
CPT/HCPCS: 99283

== ENCOUNTER 2020-03-30 00:18 | Emergency (ER) | payer SELFPAY ==
--- OUTSIDE RECORDS SUMMARY | 2020-03-30 00:21 | XMS REPORT ---
:1995 Author Organization [facility] t Address [address] [place] [address] Care Team Providers Name Role Phone Unavailable Unavailable Unavailable Problems This patient has no known problems. Allergies, Adverse Reactions, Alerts This patient has no known allergies or adverse reactions. Medications This patient has no known medications.
--- NOTE | 2020-03-30 02:24 | ER ---
Nurse's Notes [facility] Name: Kirk Olsen Age: 24 yrs Sex: Male : 1995 Arrival Date: 03/30/2020 Time: 00:20 Bed 13 Private MD: Diagnosis: Encounter for removal of sutures;Cutaneous abscess of right middle finger Presentation: 03/30 00:58 Chief complaint: Patient states: Right middle finger pain; Sutures in place since lp1 03/19/20; States pain and swelling to suture site x 2-3 days; pain on palpation. Coronavirus screen: Proceed with normal triage. Ebola Screen: No symptoms or risks identified at this time. Initial Sepsis Screen: Does the patient meet any 2 criteria? No. Patient's initial sepsis screen is negative. Does the patient have a suspected source of infection? No. Patient's initial sepsis screen is negative. Risk Assessment: Do you want to hurt yourself or someone else? Patient reports no desire to harm self or others. Onset of symptoms was March 30, 2020. 00:58 Method Of Arrival: Ambulatory lp1 00:58 Acuity: ADAM 4 lp1 Historical: - Allergies: 01:00 No Known Allergies; lp1 - Home Meds: 01:00 None [Active]; lp1 - PMHx: 01:00 None; lp1 - PSHx: 01:00 None; lp1 - Immunization history:: Adult Immunizations up to date. - Social history:: Smoking status: Patient reports the use of cigarette tobacco products, denies chronic smoking, but will smoke occasionally. Screenin:59 Abuse screen: Denies threats or abuse. Denies injuries from another. Nutritional lp1 screening: No deficits noted. Tuberculosis screening: No symptoms or risk factors identified. Fall Risk None identified. Assessment: 01:20 General: Appears in no apparent distress. Behavior is calm, cooperative, appropriate lp1 for age. Pain: Complains of pain in dorsal aspect of proximal phalanx of right middle finger Pain currently is 5 out of 10 on a pain scale. Neuro: Level of Consciousness is awake, alert, obeys commands. Cardiovascular: Patient's skin is warm and dry. Respiratory: Respiratory effort is even, unlabored. GI: No signs and/or symptoms were reported involving the gastrointestinal system. : No signs and/or symptoms were reported regarding the genitourinary system. EENT: No signs and/or symptoms were reported regarding the EENT system. Derm: sutures in place to dorsal aspect of right middle finger. Musculoskeletal: Swelling present in dorsal aspect of proximal phalanx of right middle finger. Vital Signs: 00:58 BP 131 / 75; Pulse 78; Resp 18; Temp 98.5(TE); Pulse Ox 98% on R/A; Weight 95.25 kg; lp1 Height 5 ft. 5 in. (165.10 cm); Pain 5/10; 00:58 Body Mass Index 34.95 (95.25 kg, 165.10 cm) lp1 ED Course: 00:20 Patient arrived in ED. cl3 00:58 Arm band placed on right wrist. lp1 00:59 Triage completed. lp1 01:00 Patient has correct armband on for positive identification. lp1 01:21 Patient did not have IV access during this emergency room visit. lp1 01:47 [facility]C [facility] snw 01:47 Deo Tatum MD is Attending Physician. snw 02:09 Charis Hoskins RN is Primary Nurse. vc 02:30 Wound care: to Suture removal to site of right middle finger; Hibiclens treatment, lp1 wrapped with gauze. 02:31 No provider procedures requiring assistance completed. vc Administered Medications: 02:25 Drug: Clindamycin 300 mg Route: PO; lp1 02:39 Follow up: Response: Medication administered at discharge. lp1 02:25 Drug: [place] 5 mg-325 mg 1 tabs Route: PO; lp1 02:39 Follow up: Response: Medication administered at discharge. lp1 02:25 Drug: Hibiclens 4 % 1 application {Note: Right middle finger.} Route: Topical; Site: lp1 wound; Outcome: 02:23 Discharge ordered by . snw 02:41 Discharged to home ambulatory. lp1 02:41 Condition: good 02:41 Discharge instructions given to patient, Instructed on discharge instructions, follow up and referral plans. medication usage, wound care, Demonstrated understanding of instructions, follow-up care, medications, wound care, Prescriptions given X 2. 02:42 Patient left the ED. lp1 Signatures: Anali Graves FNP-C STOCKROOM COORDINATOR-Csnw Sara Corey RN RN lp1 Maryann Lovelace cl3 Charis Hoskins, RN RN vc
--- NOTE | 2020-03-30 02:24 | EDPHYS ---
Physician Documentation [facility] Name: Kirk Olsen Age: 24 yrs Sex: Male : 1995 Arrival Date: 03/30/2020 Time: 00:20 Bed 13 Private MD: ED Physician Deo Tatum HPI: 03/30 02:26 This 24 yrs old Male presents to ER via Ambulatory with complaints of Finger snw Injury. Historical: - Allergies: 01:00 No Known Allergies; lp1 - Home Meds: 01:00 None [Active]; lp1 - PMHx: 01:00 None; lp1 - PSHx: 01:00 None; lp1 - Immunization history:: Adult Immunizations up to date. - Social history:: Smoking status: Patient reports the use of cigarette tobacco products, denies chronic smoking, but will smoke occasionally. ROS: 02:26 Constitutional: Negative for fever, chills, and weight loss, Eyes: Negative for injury, snw pain, redness, and discharge, ENT: Negative for injury, pain, and discharge, Neck: Negative for injury, pain, and swelling, Cardiovascular: Negative for chest pain, palpitations, and edema, Respiratory: Negative for shortness of breath, cough, wheezing, and pleuritic chest pain, Abdomen/GI: Negative for abdominal pain, nausea, vomiting, diarrhea, and constipation, Back: Negative for injury and pain, : Negative for injury, bleeding, discharge, and swelling, MS/Extremity: Negative for injury and deformity, Neuro: Negative for headache, weakness, numbness, tingling, and seizure. 02:26 Skin: Positive for abscess, suture removal. Exam: 02:24 Constitutional: This is a well developed, well nourished patient who is awake, alert, snw and in no acute distress. Head/Face: Normocephalic, atraumatic. Eyes: Pupils equal round and reactive to light, extra-ocular motions intact. Lids and lashes normal. Conjunctiva and sclera are non-icteric and not injected. Cornea within normal limits. Periorbital areas with no swelling, redness, or edema. ENT: Nares patent. No nasal discharge, no septal abnormalities noted. Tympanic membranes are normal and external auditory canals are clear. Oropharynx with no redness, swelling, or masses, exudates, or evidence of obstruction, uvula midline. Mucous membranes moist. Neck: Trachea midline, no thyromegaly or masses palpated, and no cervical lymphadenopathy. Supple, full range of motion without nuchal rigidity, or vertebral point tenderness. No Meningismus. Chest/axilla: Normal chest wall appearance and motion. Nontender with no deformity. No lesions are appreciated. Cardiovascular: Regular rate and rhythm with a normal S1 and S2. No gallops, murmurs, or rubs. Normal PMI, no JVD. No pulse deficits. Respiratory: Lungs have equal breath sounds bilaterally, clear to auscultation and percussion. No rales, rhonchi or wheezes noted. No increased work of breathing, no retractions or nasal flaring. Abdomen/GI: Soft, non-tender, with normal bowel sounds. No distension or tympany. No guarding or rebound. No evidence of tenderness throughout. Back: No spinal tenderness. No costovertebral tenderness. Full range of motion. MS/ Extremity: Pulses equal, no cyanosis. Neurovascular intact. Full, normal range of motion. Neuro: Awake and alert, GCS 15, oriented to person, place, time, and situation. Cranial nerves II-XII grossly intact. Motor strength 5/5 in all extremities. Sensory grossly intact. Cerebellar exam normal. Normal gait. Psych: Awake, alert, with orientation to person, place and time. Behavior, mood, and affect are within normal limits. 02:24 Skin: Appearance: normal except for affected area, injury, dorsal right middle finger with 4 sutures, area edematous, erythematous, sutures removed, pus expressed from wound.. Vital Signs: 00:58 BP 131 / 75; Pulse 78; Resp 18; Temp 98.5(TE); Pulse Ox 98% on R/A; Weight 95.25 kg; lp1 Height 5 ft. 5 in. (165.10 cm); Pain 5/10; 00:58 Body Mass Index 34.95 (95.25 kg, 165.10 cm) lp1 MDM: 02:14 Patient medically screened. snw 02:26 Data reviewed: vital signs, nurses notes. Data interpreted: Pulse oximetry: on room air snw is 98 %. Interpretation: normal. Counseling: I had a detailed discussion with the patient and/or guardian regarding: the historical points, exam findings, and any diagnostic results supporting the discharge/admit diagnosis, the need for outpatient follow up, for definitive care, to return to the emergency department if symptoms worsen or persist or if there are any questions or concerns that arise at home. Response to treatment: area of suture repair with erythema, edema x 2 days. Administered Medications: 02:25 Drug: Clindamycin 300 mg Route: PO; lp1 02:39 Follow up: Response: Medication administered at discharge. lp1 02:25 Drug: Var[place] 5 mg-325 mg 1 tabs Route: PO; lp1 02:39 Follow up: Response: Medication administered at discharge. lp1 02:25 Drug: Hibiclens 4 % 1 application {Note: Right middle finger.} Route: Topical; Site: lp1 wound; Disposition: 03/30/20 02:23 Discharged to Home. Impression: Encounter for removal of sutures, Cutaneous abscess of right middle finger. - Condition is Stable. - Discharge Instructions: Skin Abscess, Suture Removal, Care After, Incision Care, Adult, Wound Care. - Prescriptions for Clindamycin HCl 300 mg Oral Capsule - take 1 capsule by ORAL route every 6 hours for 10 days; 40 capsule. Mobic 7.5 mg Oral Tablet - take 1 tablet by ORAL route once daily take with food; 20 tablet. - Medication Reconciliation Form, Thank You Letter, Antibiotic Education, Prescription Opioid Use form. - Follow up: Emergency Department; When: As needed; Reason: Worsening of condition. Follow up: Private Physician; When: 2 - 3 days; Reason: Recheck today's complaints, Continuance of care, Re-evaluation by your physician. Addendum: 03/31/2020 07:13 Co-signature as Attending Physician, Deo Tatum MD I agree with the assessment and m plan of care. Signatures: Anali Graves, SPEEDER OPERATOR-C SPEEDER OPERATOR-Csnw Sara Corey RN RN lp1 Deo Tatum MD MD [email or web address] Corrections: (The following items were deleted from the chart) 03/30 02:42 02:23 03/30/2020 02:23 Discharged to Home. Impression: Encounter for removal of lp1 sutures; Cutaneous abscess of right middle finger. Condition is Stable. Forms are Medication Reconciliation Form, Thank You Letter, Antibiotic Education, Prescription Opioid Use. Follow up: Emergency Department; When: As needed; Reason: Worsening of condition. Follow up: Private Physician; When: 2 - 3 days; Reason: Recheck today's complaints, Continuance of care, Re-evaluation by your physician. [email or web address]
[2020-03-30] MEDS ORDERED: HYDROCODONE/APAP 5/325 MG TAB ONE (02:36)
[2020-03-30 02:48] VITALS: BP 131/75; TEMP 98.5; O2SAT 98
== END 2020-03-30 02:42 | disposition home or self-care (01) ==
LOC: ER 00:18
DX: L02.511 Cutaneous abscess of right hand (principal); Z48.02 Encounter for removal of sutures
CPT/HCPCS: 99283